=== PATIENT | male | born 1950 | race Caucasian/White ===

== ENCOUNTER → 2017-02-07 | Outpatient (REF) | payer OTHER ==
[~2017-02-07] MED LIST: AMLO5CAP2 PO; ASPI81TA85 PO; ATOR1TAB19 PO; COUM2.5T11 PO; FOLI1TAB2 PO; MULT1TAB8 PO; OXYC-299 PO; PERC5TAB6 PO; THIA100TA PO; TUMS500C PO; TYLE325T5 PO; TYLETAB14 PO; VITMTA PO
== END ==
LOC: M LAB REF 16:31
PROVIDERS: ATTEND Urology
DX: Z85.46 Personal history of malignant neoplasm of prostate (principal)

== ENCOUNTER → 2017-08-27 | Outpatient (CLI) | payer OTHER ==
[~2017-08-27] MED LIST changes: -COUM2.5T11 PO; +COUM2.5T17 PO; -FOLI1TAB2 PO; +FOLI1TAB4 PO; +OXYC-141 PO; -OXYC-299 PO; +PERC5TAB12 PO; -PERC5TAB6 PO
--- NOTE | 2017-08-27 09:37 | REP ---
Maxillofacial CT study without contrast. History: Atypical facial pain. No comparison imaging. Maxillofacial CT findings: There is a fairly prominent torus mandibulare noted projecting medially from the anterior portions of the mandibular rami on both sides. No bony destructive or erosive changes seen. There are uninterrupted wisdom teeth in each side of the mandible. No maxillary lesion is seen. Hard palette is unremarkable. There is minimal mucosal thickening affecting the right maxillary sinus inferiorly. Otherwise, the maxillary sinuses are clear. Ostiomeatal complexes are patent. Ethmoid and sphenoid aeration is clear. Frontal sinuses are clear. The bony nasal septum is in the midline. Nasal turbinates are symmetric. No nasal polyp is appreciated. Mastoid aeration is normal and symmetric. No abnormality is seen in the petrous bone on either side. No bony destructive skull base lesion is seen. No intraorbital mass is seen. The deep facial soft tissues are symmetric. Impression: Fairly prominent torus mandibulare bilaterally. Minimal mucosal thickening right maxillary sinus. Otherwise unremarkable. Signed by Maurisio Curran MD 08/27/2017 02:22 P
== END ==
LOC: M RAD 08:14
PROVIDERS: ATTEND Otolaryngology
DX: G50.1 Atypical facial pain (principal)

== ENCOUNTER → 2017-08-27 | Outpatient (CLI) | payer OTHER ==
[2017-08-27 08:50] LABS: ALBUMIN/GLOBULIN RATIO 1.21 (1.00-1.93); ALKALINE PHOSPHATASE 75 U/L (45-117); ALT/SGPT 24 U/L (12-78); ANION GAP 8 MEQ/L (8-16); AST/SGOT 22 U/L (7-37); BILIRUBIN,TOTAL 0.9 MG/DL (0.2-1.0); BLOOD UREA NITROGEN 11 MG/DL (7-18); CALCIUM LEVEL 9.3 MG/DL (8.8-10.2); CARBON DIOXIDE LEVEL 28 MEQ/L (21-32); CHLORIDE LEVEL 106 MEQ/L (98-107); CHOLESTEROL LEVEL 185 MG/DL (<200); GLOMERULAR FILTRATION RATE > 60.0 (>49); GLUCOSE, FASTING 103 MG/DL (80-110); POTASSIUM SERUM 4.6 MEQ/L (3.5-5.1); SODIUM LEVEL 142 MEQ/L (136-145); TOTAL PROTEIN 7.3 GM/DL (6.4-8.2); TRIGLYCERIDES LEVEL 74 MG/DL (<150)
== END ==
LOC: M LAB 07:55
PROVIDERS: ATTEND Internal Medicine
DX: E78.5 Hyperlipidemia, unspecified (principal)

== ENCOUNTER → 2018-03-21 | Outpatient (CLI) | payer OTHER ==
[2018-03-21 14:15] LABS: PROSTATIC SPECIFIC AG MONITOR < 0.01 NG/ML (< 4.0)
== END ==
LOC: M WUC 09:54
DX: N52.31 Erectile dysfunction following radical prostatectomy (principal)
CPT/HCPCS: 84153

== ENCOUNTER → 2018-08-11 | Outpatient (CLI) | payer MEDICARE, OTHER ==
[2018-08-11 13:00] LABS: ALBUMIN 3.6 GM/DL (3.2-5.2); ALBUMIN/GLOBULIN RATIO 1.24 (1.00-1.93); ALKALINE PHOSPHATASE 68 U/L (45-117); ALT/SGPT 28 U/L (12-78); ANION GAP 6 MEQ/L (8-16); AST/SGOT 21 U/L (7-37); BILIRUBIN,TOTAL 0.7 MG/DL (0.2-1.0); BLOOD UREA NITROGEN 14 MG/DL (7-18); CALCIUM LEVEL 8.8 MG/DL (8.8-10.2); CARBON DIOXIDE LEVEL 30 MEQ/L (21-32); CHLORIDE LEVEL 105 MEQ/L (98-107); CHOLESTEROL LEVEL 168 MG/DL (<200); CHOLESTEROL RISK RATIO 1.887 (<5); CREATININE FOR GFR 0.86 MG/DL (0.70-1.30); GLOMERULAR FILTRATION RATE > 60.0 (>49); GLUCOSE, FASTING 95 MG/DL (70-100); HDL CHOLESTEROL 89 MG/DL (>40); LDL CHOLESTEROL 65 MG/DL (<100); NON-HDL-C 79 MG/DL; POTASSIUM SERUM 4.4 MEQ/L (3.5-5.1); SODIUM LEVEL 141 MEQ/L (136-145); TOTAL PROTEIN 6.5 GM/DL (6.4-8.2); TRIGLYCERIDES LEVEL 71 MG/DL (<150)
== END ==
LOC: M WUC 09:24
DX: E78.5 Hyperlipidemia, unspecified (principal)
CPT/HCPCS: 80053

== ENCOUNTER → 2019-03-24 | Outpatient (CLI) | payer MEDICARE, OTHER ==
[~2019-03-24] MED LIST changes: -AMLO5CAP2 PO; +AMLO5CAP44 PO; +FOLI1TAB11 PO; -FOLI1TAB4 PO
== END ==
LOC: M WUC 11:24
PROVIDERS: ATTEND Physician Assistant
DX: Z85.46 Personal history of malignant neoplasm of prostate (principal)

== ENCOUNTER 2019-04-23 06:52 | Day surgery (SDC) | payer MEDICARE, OTHER ==
[~2019-04-23] VITALS: Ht 180.3 cm; Wt 79.4 kg
[~2019-04-23 06:52] MED LIST changes: +EFFE150C2 PO; +NS 1,000 ML IV ONE
[2019-04-23] MEDS ORDERED: LIDOCAINE 2% INJ 100 MG/5 ML SDV (FOR ANES.) As Ordered ONE (08:03)
[2019-04-23] MEDS ORDERED: PROPOFOL 200 MG/20 ML VIAL As Ordered ONE ×2 (08:03→08:40)
--- NOTE | 2019-04-23 08:27 | ROOR ---
Patient Name: Irineo Rosales Procedure Date: 04/23/2019 8:04 AM Date of : 1950 Age: 68 Room: [facility] Gender: Male Note Status: Finalized Procedure: Colonoscopy Indications: High risk colon cancer surveillance: Personal history of colonic polyps Providers: Elmer Moreno Jr, MD Referring MD: GIN COLE MD Requesting Provider: Medicines: Propofol per Anesthesia Complications: No immediate complications. Procedure: Pre-Anesthesia Assessment: - Prior to the procedure, a History and Physical was performed, and patient medications and allergies were reviewed. The patient is competent. The risks and benefits of the procedure and the sedation options and risks were discussed with the patient. All questions were answered and informed consent was obtained. Patient identification and proposed procedure were verified by the physician and the nurse in the pre-procedure area and in the procedure room. Mental Status Examination: alert and oriented. Airway Examination: normal oropharyngeal airway and neck mobility. Respiratory Examination: clear to auscultation. CV Examination: normal. ASA Grade Assessment: II - A patient with mild systemic disease. After reviewing the risks and benefits, the patient was deemed in satisfactory condition to undergo the procedure. The anesthesia plan was to use moderate sedation / analgesia (conscious sedation). Immediately prior to administration of medications, the patient was re-assessed for adequacy to receive sedatives. The heart rate, respiratory rate, oxygen saturations, blood pressure, adequacy of pulmonary ventilation, and response to care were monitored throughout the procedure. The physical status of the patient was re-assessed after the procedure. The Colonoscope was introduced through the anus and advanced to the cecum, identified by appendiceal orifice and ileocecal valve. The colonoscopy was performed without difficulty. The patient tolerated the procedure well. The quality of the bowel preparation was adequate. Findings: The rectum, recto-sigmoid colon, cecum, appendiceal orifice and ileocecal valve appeared normal. Multiple small and large-mouthed diverticula were found in the sigmoid colon. A few small and large-mouthed diverticula were found in the descending colon, transverse colon and ascending colon. Impression: - The rectum, recto-sigmoid colon, cecum, appendiceal orifice and ileocecal valve are normal. - Diverticulosis in the sigmoid colon. - Diverticulosis in the descending colon, in the transverse colon and in the ascending colon. - No specimens collected. Recommendation: - Discharge patient to home (ambulatory). - Repeat colonoscopy in 5 years for surveillance. Elmer Moreno MD Elmer Moreno Jr, MD 04/23/2019 8:27:26 AM Electronically signed by Elmer Moreno Jr, MD Number of Addenda: 0 Note Initiated On: 04/23/2019 8:04 AM Estimated Blood Loss: Estimated blood loss: none.
[2019-04-23 08:45] VITALS: BP 163/77
== END 2019-04-23 09:30 | disposition home or self-care (01) ==
LOC: M OPP 06:52
PROVIDERS: ATTEND Surgery
DX: Z12.11 Encounter for screening for malignant neoplasm of colon (principal); Z86.010 Personal history of colon polyps; K57.30 Diverticulosis of large intestine without perforation or abscess without bleeding; I10 Essential (primary) hypertension; Z79.82 Long term (current) use of aspirin; Z79.899 Other long term (current) drug therapy; F17.210 Nicotine dependence, cigarettes, uncomplicated

== ENCOUNTER → 2019-07-14 | Outpatient (CLI) | payer MEDICARE, OTHER ==
[~2019-07-14] MED LIST changes: -NS 1,000 ML IV ONE
[2019-07-14 17:07] LABS: BASO % 0.3 % (0.0-1.0); EOS # 0.1 10^3/uL (0.0-0.5); EOS % 0.8 % (0.0-3.0); HEMATOCRIT 44.5 % (42.0-52.0); HEMOGLOBIN 14.8 g/dl (13.5-17.5); LYMPH # 1.6 10^3/uL (1.5-5.0); LYMPH % 24.9 % (24.0-44.0); MEAN CORPUSCULAR HEMOGLOBIN 33.3 pg (27.0-33.0); MEAN CORPUSCULAR HGB CONC 33.3 g/dl (32.0-36.5); MEAN CORPUSCULAR VOLUME 100.2 fl (80.0-96.0); MONO # 0.7 10^3/uL (0.0-0.8); MONO % 11.4 % (0.0-5.0); NEUTROPHILS # 3.9 10^3/uL (1.5-8.5); NEUTROPHILS % 62.1 % (36.0-66.0); PLATELET COUNT, AUTOMATED 193 10^3/uL (150-450); RED BLOOD COUNT 4.44 10^6/uL (4.30-6.10); WHITE BLOOD COUNT 6.3 10^3/uL (4.0-10.0)
[2019-07-14 17:33] LABS: ALBUMIN 3.9 GM/DL (3.2-5.2); ALT/SGPT 25 U/L (12-78); BILIRUBIN,TOTAL 0.5 MG/DL (0.2-1.0); BLOOD UREA NITROGEN 14 MG/DL (7-18); CALCIUM LEVEL 9.8 MG/DL (8.8-10.2); CARBON DIOXIDE LEVEL 28 MEQ/L (21-32); CHLORIDE LEVEL 103 MEQ/L (98-107); CREATININE FOR GFR 0.85 MG/DL (0.70-1.30); GLOMERULAR FILTRATION RATE > 60.0 (>49); GLUCOSE, FASTING 84 MG/DL (70-100); POTASSIUM SERUM 4.6 MEQ/L (3.5-5.1); SODIUM LEVEL 137 MEQ/L (136-145); TOTAL PROTEIN 7.2 GM/DL (6.4-8.2); TROPONIN I < 0.02 NG/ML (< 0.10)
== END ==
LOC: M WUC 12:31
PROVIDERS: ATTEND Nurse Practitioner Family
DX: R42 Dizziness and giddiness (principal); E07.9 Disorder of thyroid, unspecified

== ENCOUNTER 2019-07-16 19:26 | Inpatient (IN) | payer MEDICARE, OTHER ==
[~2019-07-16] VITALS: Ht 180.3 cm; Wt 75.0 kg
[2019-07-16 19:52] LABS: BASO % 0.4 % (0.0-1.0); EOS # 0.2 10^3/uL (0.0-0.5); EOS % 2.7 % (0.0-3.0); HEMATOCRIT 42.9 % (42.0-52.0); HEMOGLOBIN 14.4 g/dl (13.5-17.5); LYMPH # 2.8 10^3/uL (1.5-5.0); LYMPH % 38.7 % (24.0-44.0); MEAN CORPUSCULAR HEMOGLOBIN 33.6 pg (27.0-33.0); MEAN CORPUSCULAR HGB CONC 33.6 g/dl (32.0-36.5); MONO # 0.7 10^3/uL (0.0-0.8); MONO % 9.8 % (0.0-5.0); NEUTROPHILS # 3.5 10^3/uL (1.5-8.5); NEUTROPHILS % 48.1 % (36.0-66.0); PLATELET COUNT, AUTOMATED 249 10^3/uL (150-450); RED BLOOD COUNT 4.29 10^6/uL (4.30-6.10); WHITE BLOOD COUNT 7.3 10^3/uL (4.0-10.0)
[2019-07-16 20:13] LABS: INR 1.01
[2019-07-16 20:23] LABS: ALBUMIN 3.9 GM/DL (3.2-5.2); ALT/SGPT 29 U/L (12-78); BILIRUBIN,DIRECT 0.1 MG/DL (0.0-0.2); BILIRUBIN,TOTAL 0.5 MG/DL (0.2-1.0); BLOOD UREA NITROGEN 13 MG/DL (7-18); CALCIUM LEVEL 9.1 MG/DL (8.8-10.2); CARBON DIOXIDE LEVEL 27 MEQ/L (21-32); CHLORIDE LEVEL 104 MEQ/L (98-107); CK-MB VALUE MASS 2.3 NG/ML (<3.6); CPK CREATINE PHOSPHOKINASE 158 U/L (39-308); CREATININE FOR GFR 0.91 MG/DL (0.70-1.30); GLOMERULAR FILTRATION RATE > 60.0 (>49); GLUCOSE, FASTING 95 MG/DL (70-100); MB/CK RELATIVE INDEX 1.46 (< OR =4); POTASSIUM SERUM 4.4 MEQ/L (3.5-5.1); SODIUM LEVEL 138 MEQ/L (136-145); TOTAL PROTEIN 7.3 GM/DL (6.4-8.2); TROPONIN I < 0.02 NG/ML (< 0.10)
[2019-07-16 21:51] LABS: ETHYL ALCOHOL (ETHANOL) < 0.003 % (0.000-0.010)
--- NOTE | 2019-07-16 22:05 | REPVR ---
PROCEDURE INFORMATION: Exam: MR Head Without Contrast Exam date and time: 07/16/2019 9:49 PM Clinical history: 68 years old, male; Weakness, extremity; Patient HX: Severe bilateral le weakness for several days; Additional info: Neuro deficits TECHNIQUE: Imaging protocol: MR of the head without contrast. COMPARISON: No relevant prior studies available. FINDINGS: Brain: No acute infarct. Mild chronic microvascular ischemic changes. Ventricles: Normal. No ventriculomegaly. Bones/joints: Unremarkable. Soft tissues: Unremarkable. Sinuses: Normal as visualized. No acute sinusitis. Mastoid air cells: Normal as visualized. No mastoid effusion. Orbits: Unremarkable. Other findings: No hemorrhage. IMPRESSION: No acute intracranial abnormality. Electronically signed by: Lm Constantino On 07/16/2019 22:05:29 PM
--- NOTE | 2019-07-16 22:11 | REPVR ---
PROCEDURE INFORMATION: Exam: MR Angiogram Head Without Contrast, Arteries Exam date and time: 07/16/2019 9:49 PM Clinical history: 68 years old, male; Patient HX: Severe bilateral le weakness for several days; Additional info: Neuro deficits TECHNIQUE: Imaging protocol: MR angiogram head without contrast. Exam focused on the arteries. 3D rendering: MIP reconstructed images were created and reviewed. COMPARISON: No relevant prior studies available. FINDINGS: Right internal carotid artery: Unremarkable. Intracranial segment is patent with no significant stenosis. No aneurysm. Right anterior cerebral artery: Unremarkable. No occlusion or significant stenosis. No aneurysm. Right middle cerebral artery: Unremarkable. No occlusion or significant stenosis. No aneurysm. Right posterior cerebral artery: Unremarkable. No occlusion or significant stenosis. No aneurysm. Right vertebral artery: Unremarkable. No occlusion or significant stenosis. No aneurysm. Left internal carotid artery: Unremarkable. Intracranial segment is patent with no significant stenosis. No aneurysm. Left anterior cerebral artery: Unremarkable. No occlusion or significant stenosis. No aneurysm. Left middle cerebral artery: Unremarkable. No occlusion or significant stenosis. No aneurysm. Left posterior cerebral artery: Unremarkable. No occlusion or significant stenosis. No aneurysm. Left vertebral artery: Left vertebral artery ends in PICA. The left vertebral artery continues as the basilar artery. Basilar artery: Unremarkable. No occlusion or significant stenosis. No aneurysm. IMPRESSION: No acute intracranial abnormality. Electronically signed by: Lm Constantino On 07/16/2019 22:11:12 PM
[2019-07-16] MEDS ORDERED: ACETAMINOPHEN TAB 650MG DOSE (2X325MG) PO PRN (22:15)
[2019-07-16 23:25] LABS: APPEARANCE, CSF CLEAR (CLEAR); COLOR, CSF COLORLESS (COLORLESS); CSF TUBE# CELL CNT TUBE 4
[2019-07-16 23:25] LABS: APPEARANCE, CSF CLEAR (CLEAR); COLOR, CSF COLORLESS (COLORLESS); CSF TUBE# CELL CNT TUBE 1
[2019-07-16] MEDS ORDERED: 12 H0.05 (23:30)
[2019-07-16] MEDS ORDERED: ASPI-161 PO (23:30)
[2019-07-16] MEDS ORDERED: LORA-622 PO (23:30)
[2019-07-16] MEDS ORDERED: LOTR52CA PO (23:30)
[2019-07-16] MEDS ORDERED: MUCINEX SINUS MAX (23:30)
[2019-07-16 23:31] LABS: CSF TUBE# GLU TUBE 3; CSF TUBE# TP TUBE 4; GLUCOSE CSF 60 MG/DL (40-75); TOTAL PROTEIN,CSF 73 MG/DL (15-45)
--- NOTE | 2019-07-16 23:38 | HPEPDOC ---
[facility] Medical History & Physical Date of Admission Jul 16, 2019 Date of Service: Jul 16, 2019 Primary Care Physician: A Other Provider Jamal Love MD Attending Physician: DANIEL VAZQUEZ MD History and Physical TIME OF SERVICE: 11:15 PM CHIEF COMPLAINT: Weakness HISTORY OF PRESENT ILLNESS: This is a 68 year old male who presents with complaints of gradually worsening lower extremity weakness. Last Saturday in the morning he felt like he "pulled"something in his left calf; as the day went on he had an abnormal sensation moving up and down his leg. On Saturday, the same thing occurred to his right leg. Over the next few days both legs gradually became weaker; yesterday he was able to walk with a cane but today he was unable to hold himself up, or get up or to walk, and had a fall this afternoon which prompted him to come to the hospital. He denies hitting his head as a result of the fall. Other symptoms include "double vision" and lower back pain. He denies having fevers, denies having difficulty swallowing, denies having difficulty breathing, denies having trauma to his back prior to developing the symptoms, denies having cough, denies having a runny nose, denies having congestion, denies having nausea, and denies having vomiting. REVIEW OF SYSTEMS: 12 point review of systems negative except as listed in HPI PAST MEDICAL/ SURGICAL HISTORY: Chronic hypertension. Dyslipidemia. History of prostate cancer status post prostatectomy in 2006 Left knee total replacement SOCIAL HISTORY: Smokes Drink 6 beers daily FAMILY HISTORY: Father had brain aneurysm ALLERGIES: Please see below. HOME MEDICATIONS: Please see below. PHYSICAL EXAMINATION: VITAL SIGNS: Please see below. GENERAL APPEARANCE: Well-nourished, well-developed, not in apparent distress HEENT: Normocephalic, atraumatic, mucous membranes moist and pink, left pupil does not appear to react to light. CARDIOVASCULAR: Regular rate and rhythm. No murmurs, rubs or gallops LUNGS: Clear to auscultation bilaterally on room air ABDOMEN: Abdomen is soft and nontender on palpation MUSCULOSKELETAL: strength is 5 /5 in both upper extremities, 3/5 at the left hip and knee and +3/5 at the right knee and hip/ negative straight leg test bilaterally INTEGUMENT: He does not have generalized pallor and is not flushed NEUROLOGICAL:Cranial nerves II-12 except for pupillary reflex at the left are intact / sensation is intact both lower extremities / there is no clonus / DTR 0 at left knee, 1 at right knee, 2 at both biceps PSYCHIATRIC: Allergic oriented to person, place and time, able to understand and follow commands LABORATORY DATA: See below. IMAGING: MRI brain " IMPRESSION: No acute intracranial abnormality." MICROBIOLOGY: Please see below. ASSESSMENT: Mr. Rosales 68-year-old male with a past medical history of hypertension, dyslipidemia, and prostate cancer in remission, who will be admitted for evaluation of bilateral lower extremity weakness who's cause is TBD. PLAN: 1. Bilateral lower extremity weakness Cause TBD Differential includes GB vs spinal cord impingement. LP results were reviewed. Plan: admit to [facility] / aspiration precautions / fall precautions / per d/w (Neuro) will order MRI of thoracic and lumbar spine tonight / elevate head of bed /f/u B12 and B1 levels / PT eval to determine if he will need walking aides and or rehab 2. Back pain Cause TBD Patient denies trauma to the back. Plan: f/u MRI of spine / lidocaine patch, ibuprofen and tramadol for pain 3. Chronic HTN Acute elevation 2/2 back pain and or alcohol w/d Plan: c/w home meds / control pain 4. Alcohol Dependence He is unsure if he will develop seizures if he doesn't drink bc he drinks daily. The Macrocytosis is likely due to alcoholism Plan: fall & seizure precautions / ativan per CIWA protocol / thiamine, folic acid and MVI 5. Tobacco Abuse Plan: nicotine patch / smoking cessation education DVT prophylaxis with Lovenox Disposition pending clinical course Vital Signs Vital Signs Date Time Temp Pulse Resp B/P (MAP) Pulse Ox O2 Delivery O2 Flow Rate FiO2 07/16/19 23:19 72 16 95 Room Air 07/16/19 22:49 135/66 (89) 07/16/19 19:37 99.0 Laboratory Data Labs 24H Laboratory Tests 2 07/16/19 19:38: Immature Granulocyte % (Auto) 0.3, Neutrophils (%) (Auto) 48.1, Lymphocytes (%) (Auto) 38.7, Monocytes (%) (Auto) 9.8H, Eosinophils (%) (Auto) 2.7, Basophils (%) (Auto) 0.4, Neutrophils # (Auto) 3.5, Lymphocytes # (Auto) 2.8, Monocytes # (Auto) 0.7, Eosinophils # (Auto) 0.2, Basophils # (Auto) 0.0, Nucleated Red Blood Cells % (auto) 0.0, Prothrombin Time 13.0, Prothromb Time International Ratio 1.01, Anion Gap 7L, Glomerular Filtration Rate > 60.0, Calcium Level 9.1, Magnesium Level 2.0, Total Bilirubin 0.5, Direct Bilirubin 0.1, Aspartate Amino Transf (AST/SGOT) 25, Alanine Aminotransferase (ALT/SGPT) 29, Alkaline Phos phatase 88, Total Creatine Kinase 158, Creatine Kinase MB 2.3, Creatine Kinase MB Relative Index 1.46, Troponin I < 0.02, Total Protein 7.3, Albumin 3.9, Albumin/Globulin Ratio 1.15, Thyroid Stimulating Hormone (TSH) 4.010H, Ethyl Alcohol Level < 0.003 07/16/19 22:56: CSF Appearance CLEAR, CSF Color COLORLESS, CSF WBC (Auto) 3, CSF RBC (Auto) < 2, CSF Glucose (Tube 1) TUBE 3, CSF Total Protein (Tube 1) TUBE 4, CSF Cell Count Tube # TUBE 1, CSF Polynuclear WBCs (%) , CSF Glucose 60, CSF Total Protein 73H 07/16/19 23:00: CSF Appearance CLEAR, CSF Color COLORLESS, CSF WBC (Auto) 1, CSF RBC (Auto) < 2, CSF Cell Count Tube # TUBE 4, CSF Polynuclear WBCs (%) CBC/BMP Laboratory Tests 07/16/19 19:38 Microbiology Microbiology 07/16/19 Gram Stain, Received Pending 07/16/19 CSF Culture, Received Pending Home Medications Scheduled Amlodipine/Benazepril (Lotrel 5-20 mg Capsule) 1 Each Capsule, 1 CAP PO QHS Aspirin (Aspirin EC) 81 Mg Tablet.dr, 81 MG PO DAILY Atorvastatin Calcium (Atorvastatin Calcium) 10 Mg Tab, 10 MG PO QHS Venlafaxine HCl (Effexor Xr) 150 Mg Cap.er.24h, 150 MG PO DAILY Scheduled PRN Calcium Carbonate (Tums) 500 Mg Chw, 1,000 MG PO Q4H PRN for HEARTBURN/INDIGESTION Loratadine (Loratadine) 10 Mg Tablet, 10 MG PO DAILY PRN for ALLERGY SYMPTOMS Oxymetazoline HCl (No Drip) 0.05% [place], 2 SPRAYS NA QHS PRN for NASAL CONGESTION Allergies Coded Allergies: No Known Allergies (Unverified , 07/16/19) A-FIB/CHADSVASC A-FIB History Current/History of A-Fib/PAF?: No Current PO Anticoag Therapy: No DANIEL VAZQUEZ MD Jul 16, 2019 23:38
[2019-07-16 23:40] VITALS: BP 162/90
[2019-07-17] VITALS: BP 162/90
[2019-07-17] MEDS ORDERED: IBUPROFEN 600 MG TAB PO ONE
[2019-07-17] MEDS ORDERED: LORazepam 2 MG/ML VIAL (J2060) IM PRN
[2019-07-17] MEDS ORDERED: OXYMETAZOLINE NASAL SPRAY (AFRIN) PRN (00:15)
[2019-07-17] MEDS ORDERED: CALCIUM CARBONATE 500 MG CHEW U/D PO PRN (00:15)
[2019-07-17] MEDS ORDERED: LORATADINE 10 MG TAB PO PRN (00:15)
[2019-07-17] MEDS: THIAMINE 100 MG TAB PO SCH ×3 (00:25→20:19)
[2019-07-17] MEDS: LIDOCAINE 5% (LIDODERM) PATCH TD SCH ×2 (00:26→20:33)
[2019-07-17] MEDS: amLODIPine 5 MG TAB PO SCH ×2 (00:26→20:19)
[2019-07-17] MEDS ORDERED: diphenhydrAMINE INJ 50MG/ML VIAL (J1200) IM ONE (00:45)
[2019-07-17] MEDS ORDERED: diphenhydrAMINE 25 MG CAP PO ONE (00:45)
[2019-07-17] MEDS: BENAZEPRIL 20 MG TAB PO SCH ×2 (00:50→20:19)
[2019-07-17] MEDS ORDERED: traMADol ER 100MG TABLET (ULTRAM ER) PO ONE (01:00)
[2019-07-17] MEDS ORDERED: LORazepam 2 MG/ML VIAL (J2060) IV STA (01:58)
[2019-07-17] MEDS ORDERED: MORPHINE 2 MG/ML 1ML VIAL (J2270) IV PRN (02:00)
[2019-07-17] MEDS: **NOTE PATIENT COMMENT** MISC XX SCH (02:26)
--- NOTE | 2019-07-17 04:23 | REPVR ---
PROCEDURE INFORMATION: Exam: MR Thoracic Spine Without Contrast Exam date and time: 07/17/2019 3:31 AM Clinical history: 68 years old, male; Patient HX: Le weakness, negative mri/a brain done <24 hours ago; Additional info: Weakness and back pain TECHNIQUE: Imaging protocol: Multiplanar magnetic resonance images of the thoracic spine without contrast. COMPARISON: No relevant prior studies available. FINDINGS: Vertebrae: There multiple osseous lesions suspicious for malignancy, which are low in signal on T1, predominantly low in signal on T2 and heterogeneously increased signal on STIR. The largest lesion involves the T7 vertebral body and posterior elements. There is no loss of height or significant expansion of the T7 vertebral body. There is mild expansion of the left T7 lamina. Additional, smaller lesions are seen within the T1 vertebral body and the T1 spinous process, the T2 vertebral body, the left T5 transverse process, the T6 vertebral body, the superior aspect of the T8 vertebral body and in the far right side of the T12 vertebral body. There is mild loss of height of the T12 vertebral body with slight depression of the superior endplate, but no associated abnormal signal within superior endplate. Spinal cord: The thoracic spinal cord is normal in signal and morphology. Discs/Spinal canal/Neural foramina: There is a small disc osteophyte complex at T11-T12, asymmetric to the left in the paracentral location, not resulting in significant stenosis of the spinal canal. No significant spinal canal stenosis is seen. Soft tissues: The paraspinous soft tissues appear unremarkable. Vasculature: The visualized aorta is normal in size. IMPRESSION: 1. Multiple osseous lesions, highly suspicious for metastases. The largest involves the T7 vertebral body and posterior elements with mild expansion of the left lamina. 2. No significant encroachment upon the spinal canal. Normal signal of the thoracic spinal cord. Electronically signed by: Maritza Hurley On 07/17/2019 04:22:37 AM
[2019-07-17] MEDS: MORPHINE 2 MG/ML 1ML VIAL (J2270) IV PRN ×5 (04:29→20:19)
[2019-07-17] MEDS: NICOTINE 14 MG/24 HR TRANSDERMAL TD SCH ×2 (04:29→09:18)
--- NOTE | 2019-07-17 04:40 | REPVR ---
PROCEDURE INFORMATION: Exam: MR Lumbar Spine Without Contrast. Exam date and time: 07/17/2019 3:31 AM Clinical history: 68 years old, male; Patient HX: Le weakness, negative mri/a brain done <24 hours ago; Additional info: Weakness and back pain TECHNIQUE: Imaging protocol: Multiplanar magnetic resonance images of the lumbar spine without intravenous contrast. COMPARISON: No relevant prior studies available. FINDINGS: Limitations: There is motion artifact. Vertebrae: There are several osseous lesions which are low in signal on T1, predominantly low in signal on T2, and heterogeneously increased signal on STIR which are suspicious for osseous metastases. The largest lesion in the lumbar spine involves the anterior aspect of the L1 vertebral body. There is no significant expansion. Additional lesions are seen in the T12 vertebral body, described on the MRI of the thoracic spine, as well as in the right side of the L5 vertebral body. There is normal alignment of the lumbar spine. Spinal cord: The conus medullaris terminates at the L1-L2 level. The distal cord appears unremarkable. T12-L1: Imaged on the sagittal images only. No posterior disc bulge or herniation. No central or foraminal stenosis. L1-L2: Anterior endplate spurs. No posterior disc bulge or herniation. No central or foraminal stenosis. L2-L3: Anterior endplate spurs. Minimal posterior disc bulge. No central or foraminal stenosis. L3-L4: Anterior endplate spurs. Small disc bulge. Mild facet joint hypertrophy. No significant central or foraminal stenosis. L4-L5: Anterior endplate spurs. Diffuse disc bulge with more prominent extension into the bilateral neural foramen than centrally. Hypertrophic facet arthropathy with fluid in the left facet joint. 9 mm ganglion extending posteriorly from the left facet joint. Mild central canal stenosis and mild bilateral neural foraminal narrowing. L5-S1: Anterior endplate spurs and moderate disc narrowing. Disc bulge more prominent into the bilateral neural foramen than centrally. Hypertrophic facet arthropathy. No significant central stenosis. Moderate left and mild right neural foraminal narrowing. Soft tissues: See L4-L5 findings. The paraspinous soft tissues appear otherwise unremarkable. Other findings: The visualized aorta is normal in size. IMPRESSION: 1. Several osseous lesions, suspicious for osseous metastases. See the separate report for MRI of the thoracic spine. 2. Degenerative disc disease and facet arthropathy most prominent at L4-L5 and L5-S1. Mild central canal stenosis at L4-L5. Bilateral neural foraminal narrowing at L4-L5 and L5-S1. Findings were discussed with DANIEL VAZQUEZ at 07/17/2019 4:25 AM EST. Electronically signed by: Maritza Hurley On 07/17/2019 04:40:04 AM
[2019-07-17] MEDS: ACETAMINOPHEN 650MG ER TAB (TYLENOL ARTHRITIS) PO SCH ×2 (05:43→17:05)
[2019-07-17 06:00] VITALS: BP 138/81
[2019-07-17] MEDS ORDERED: IBUPROFEN 200 MG TAB PO PRN (06:00)
[2019-07-17 07:00] VITALS: BP 138/81
[2019-07-17 08:05] LABS: HEMOGLOBIN 13.3 g/dl (13.5-17.5); MEAN CORPUSCULAR HEMOGLOBIN 33.3 pg (27.0-33.0); MEAN CORPUSCULAR HGB CONC 33.3 g/dl (32.0-36.5); MEAN CORPUSCULAR VOLUME 100.3 fl (80.0-96.0); PLATELET COUNT, AUTOMATED 244 10^3/uL (150-450); RED BLOOD COUNT 3.99 10^6/uL (4.30-6.10); WHITE BLOOD COUNT 6.6 10^3/uL (4.0-10.0)
[2019-07-17 08:20] LABS: BLOOD UREA NITROGEN 14 MG/DL (7-18); CALCIUM LEVEL 8.9 MG/DL (8.8-10.2); CARBON DIOXIDE LEVEL 29 MEQ/L (21-32); CHLORIDE LEVEL 104 MEQ/L (98-107); GLOMERULAR FILTRATION RATE > 60.0 (>49); GLUCOSE, FASTING 100 MG/DL (70-100); POTASSIUM SERUM 3.9 MEQ/L (3.5-5.1); SODIUM LEVEL 138 MEQ/L (136-145)
[2019-07-17 09:08] LABS: CPK CREATINE PHOSPHOKINASE 190 U/L (39-308)
[2019-07-17] MEDS: VENLAFAXINE **XR** 75MG CAPSULE PO SCH (09:15)
[2019-07-17] MEDS: ASPIRIN 81 MG ENTERIC TAB PO SCH (09:15)
[2019-07-17] MEDS: MULTIVITAMINS/MINERALS THERAP 1 TAB PO SCH (09:16)
[2019-07-17] MEDS: FOLIC ACID 1 MG TAB PO SCH (09:16)
[2019-07-17] MEDS: ENOXAPARIN 40 MG/0.4 ML SYRINGE (J1650) SC SCH (09:16)
[2019-07-17 09:32] LABS: ERYTHROCYTE SEDIMENTATION RATE 6 mm/hr (0-20)
[2019-07-17 09:38] LABS: VITAMIN B12 LEVEL 265 PG/ML (247-911)
[2019-07-17] MEDS: GASTROGRAFIN SOLUTION 30ML PO SCH ×2 (09:53→10:27)
[2019-07-17] MEDS ORDERED: ISOVUE-370 76% 100ML VIAL (Q9967) As Ordered ONE (11:59)
[2019-07-17] MEDS: CYANOCOBALAMIN 500 MCG TAB PO SCH (13:02)
--- NOTE | 2019-07-17 13:35 | ECGEPIP ---
[facility] - ED Test Date: 2019-07-16 Pat Name: TRISTAN BRIZUELA Department: Room: [place] [address] Gender: Male Healthcare Customer Service: JULISA : 1950 Requested By: JOSE Ochoa Order Number: [id number] Reading MD: Sayra Gomez Measurements Intervals [place] Rate: 73 P: 77 OK: 188 QRS: 40 QRSD: 78 T: 70 QT: 368 QTc: 406 Interpretive Statements SINUS RHYTHM baseline artifact may affect interpretation INCREASED RATE 05/18/16 Electronically Signed on 07-17-2019 13:34:36 EST by Sayra Gomez
[2019-07-17 13:54] VITALS: BP 160/99
--- NOTE | 2019-07-17 14:25 | REP ---
CT of the chest with IV contrast: There are no comparisons. The patient reportedly has history of prostate carcinoma and prostatectomy. There are multiple right lung nodules as follows: Right upper lobe anteriorly inferiorly adjacent to the minor fissure, there are three nodules: 12 mm near the hilus image 51. 16 mm, slightly more inferolaterally, image 50. 23 mm slightly more inferiorly , image 50. Right middle lobe: 11 mm anteriorly. Image 57. 23 mm more inferiorly, image 71. There are no pleural effusions. There is no mediastinal, hilar or axillary lymphadenopathy. The thoracic aorta is unremarkable. Cardiac size is normal. There is no pericardial effusion. There is a faintly visible blastic lesion and also a probable lytic lesion in the T8-2 vertebral body. There is grade 1 compression deformity of the L1 vertebral body. There is a fracture of the right seventh rib posterolaterally, likely subacute as there appears to be callus and healing. Impression: Multiple right lung nodules as described. 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 Fracture of the right seventh rib posterolaterally, healing Fracture of the left eighth rib posterolaterally. Possibly pathologic. No adenopathy. No pleural effusion. Electronically Signed by Alejandro Contreras MD 07/17/2019 02:17 P
--- NOTE | 2019-07-17 14:57 | REP ---
CT of the abdomen and pelvis with IV and oral contrast: The studies performed contiguously with the chest CT this same date. The patient reportedly has a history of prostate carcinoma and prostatectomy. Present for a to the chest CT for findings in the chest. The hepatic parenchyma. There is a faintly visible enhancing lesion in the right lobe of the liver on image 30 measuring 20 mm. Upon review this is unchanged from the prior abdomen/pelvis CT dated 05/18/2016 and is likely an hemangioma. The hepatic parenchyma is otherwise homogeneous. There are no other hepatic masses. The gallbladder, pancreas and spleen are normal size and unremarkable. The adrenals are unremarkable. There is a nonobstructive 3 mm calculus in the left renal lower pole. There is an exophytic Bosniak type 1 left renal cyst at the lower pole measuring 2.2 cm. The kidneys are otherwise unremarkable. The abdominal aorta is unremarkable. There is no periaortic adenopathy or mass. The bowel and mesentery are unremarkable. Pelvis: The appendix is unremarkable. There is no pelvic adenopathy or ascites. There is a penile implant. This is unchanged. There are no lytic, blastic or destructive skeletal changes. There is grade 1 compression deformity of the T12 vertebral body. There is degenerative disc disease at T11-12 and T12-L1 and L5-S1. No lytic, blastic or destructive skeletal changes are identified in the lumbar spine or pelvis. Impression: No evidence of metastatic disease. No skeletal metastases. Nonobstructive left renal calculus. Benign left renal cyst. No retroperitoneal or abdominal adenopathy or mass. Penile implant. Electronically Signed by Alejandro Contreras MD 07/17/2019 02:48 P
[2019-07-17] MEDS ORDERED: IMMUNE GLOBULIN IV SCH (15:45)
--- NOTE | 2019-07-17 16:49 | IPNPDOC ---
Text Note Date of Service The patient was seen on 07/17/19. NOTE Subjective: Continues to have profound weakness of his legs, he cannot elevate legs against gravity and he is unable to walk. Also patient complains of double vision. Had long discussion about MRI result and further management Objective:VITAL SIGNS: Please see below. GENERAL APPEARANCE: Well-nourished, well-developed, not in apparent distress HEENT: Normocephalic, atraumatic. Mucous members moist and pink CARDIOVASCULAR: Regular rate and rhythm. No murmurs, rubs or gallops. Radial pulses are intact. There is no lower extremity edema LUNGS: . Diminished lung sounds bilaterally ABDOMEN: Bowel sounds are hypoactive. Abdomen is soft and nontender. MUSCULOSKELETAL: Patient cannot elevate his legs against gravity, reflexes preserved NEUROLOGICAL: Patient has double vision on both eyes, no nystagmus, no peripheral vision limitations. Sensitivity of the legs preserved, no nuchal rigidity. Alert, oriented, awake. Speech is not dysarthric Assessment and plan: Patient is 68 years old male with past history of hypertension, prostate cancer treated with prostatectomy in 2006 presented hospital with bilateral leg weakness and double vision. Imaging study showed multiple spinal bone metastasis and right lung nodules. Bilateral leg weakness MRI of the spine did not show compression of the spinal cord Differential diagnosis includes paraneoplastic syndrome secondary to malignancy S Lamberta Eaton syndrome, myasthenia gravis. Also there is possibility for Gullian Peoples syndrome. I discussed findings with Dr. Ervin with neurologist, he recommended IVIG infusion I ordered ab to voltage gated calcium channel, acetylcholine receptor Ab Bone metastasis/Lung nodules MRI of the spine showed multiple metastasis on the thoracic and lumbar spine level Chest CAT scan showed right lung nodules Patient had a history of prostate cancer, his also active smoker. Unclear the primary source of cancer. We will proceed with biopsy. IR guided biopsy ordered Appreciate/agree with oncologist consult Chronic HTN Continue cardioprotective medication Tobacco Abuse Plan: nicotine patch / smoking cessation education VS,Amy, I+O VS, Amy, I+O Laboratory Tests 07/16/19 19:38 07/17/19 07:45 Vital Signs Date Time Temp Pulse Resp B/P (MAP) Pulse Ox O2 Delivery O2 Flow Rate FiO2 07/17/19 15:50 18 07/17/19 14:00 97.9 69 94 Room Air 07/17/19 13:54 160/99 (119) I&O- Last 24 Hours up to 6 AM 07/17/19 06:00 Intake Total 600 ml Output Total 0 ml Balance 600 ml BARBARA HARPER DO Jul 17, 2019 16:49
[2019-07-17 17:40] LABS: FOLATE 14.2 NG/ML (>5.4)
--- NOTE | 2019-07-17 17:43 | CR ---
DATE OF HEMATOLOGY/ONCOLOGY CONSULTATION: 07/17/2019 This is a very pleasant 68-year-old gentleman who had come into the hospital due to development of gradually worsening of lower leg weakness. The patient stated that he felt that he may have pulled something in his left thigh or calf and had found an almost odd electrical type sensation going up and down his leg. The patient then stated approximately 12 hours later the same thing had occurred to his right lower leg. His legs had become weaker and he started to use a cane. It was at this time that the patient had gone to the emergency room for evaluation. He had no signs of any trauma and he has not received any immunizations in the past few months. Concern was that he may have had some spinal cord impingement and an MRI of the thoracic and the lumbar spine were done on 07/17/2019. The patient was found to have multiple osseous lesions suspicious for malignancy, predominately on the largest lesion involving T7 vertebral body and its posterior elements. There was no significant loss of height or expansion or any extension into the spinal cord. Other areas of disease were found at the left T5 transverse process T6, T8, T12. The spinal cord however was normal in its signal and morphology. No encroachment on the spinal cord in the thoracic or in the lumbar region. The patient then had a CT scan of the chest which had shown multiple right lung nodules, probably blastic and lytic mets as noted, fracture of the right 7th rib and a fracture of the left 8th rib posteriorly most likely pathological. The patient had a 12 mm lesion near the hilus and a 16 mm lesion inferolaterally and a 23 mm slightly more inferiorly. There was no sign of any pleural effusion at that time. The patient is currently in the hospital bed, his was at the bedside for further discussions to give history as well. PAST MEDICAL HISTORY: Includes prostate carcinoma status post prostatectomy in 2006, left total knee replacement, dyslipidemia, chronic hypertension. He takes about six beers a day. He continues to smoke at least a pack a day and has about a 50-60 pack-year history. FAMILY HISTORY: His father had a brain aneurysm. ALLERGIES: NO KNOWN DRUG ALLERGIES. CURRENT MEDICATIONS: Include Effexor 150 mg daily, loratadine 10 mg p.o. daily, atorvastatin 10 mg q.h.s., aspirin 81 mg p.o. daily and amlodipine Lotrel 5/20 mg one p.o. q.h.s. REVIEW OF SYSTEMS: He has had no headache, visual disturbances. No numbness or tingling in his upper extremities. No shortness of breath. No hemoptysis. No nausea or vomiting. No current problems with controlling his bowel or his bladder and he does relate having numbness and tingling and inability to lift both of his legs and does need assistance getting in and out of bed. He states that he is able to stand but moving his legs are a whole other story. LABORATORY: The patient had a WBC count of 6.6, hemoglobin of 13 over 40, RDW is 12.5, platelets are 244, serum chemistries, PSA is currently pending. His TSH is 4.10. Sodium is 138, potassium 3.9, chloride 104, CO2 29, BUN 14, creatinine 0.8, fasting glucose of 100 and creatinine kinase of 190. Coagulation studies show a PT of 13, INR of 1.10. The patient had a spinal tap lumbar puncture on 07/16/2019 showing clear color, WBCs with 3, RBCs were less than 2, his glucose was 60, total protein was 73. Cytology was not requested. However was added today. Specimen is available in the cytology lab and will be run on Saturday which will be July 27. Imaging studies are above noted. 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 PLAN: Followup on the cytology, have neurology evaluate the patient as well, get vitamin B12 and folate levels due to history of EtOH.
[2019-07-17] MEDS ORDERED: IMMUNE GLOBULIN 10% 10 GM in IV 1 EA IV ONE (18:00)
[2019-07-17] MEDS ORDERED: IMMUNE GLOBULIN 10% 20 GM in IV 1 EA IV ONE (18:00)
[2019-07-17 20:00] VITALS: BP 149/78
--- NOTE | 2019-07-17 21:38 | CR ---
DATE OF CONSULTATION: 07/17/2019 REFERRING PHYSICIAN: Percy Lei MD REASON FOR CONSULTATION: Weakness. HISTORY OF PRESENT ILLNESS Irineo Rosales is a 68-year-old man who was admitted at [facility] due to progressive weakness. The patient states that his symptoms started this past Saturday 6 days ago when he felt a pulled muscle in his left calf. He felt pulled muscle in his right calf on Saturday. He felt tightening of his muscles. On Saturday he started feeling weakness of his legs. He started using a cane. He went to Urgent Care and his blood tests were unremarkable. He saw his primary care physician on and by then he had more difficulty walking and he had double vision as well. He was using a walker day before he came to [facility] emergency department. He was scheduled to see us for consultation at our office today but he came to [facility] last night. His legs are getting weaker. He denies numbness, tingling or pain at his arms and legs. This morning he started feeling weakness of his arms as well. He denies any neck pain, back pain, headaches, dysphagia, dysarthria or urinary incontinence. He states that if he is looking on the clock in the room he sees two clocks. His double vision gets better if he tilts his head or closes one eye. DIAGNOSTIC STUDIES His MRI scan of brain showed minimal small vessel disease of brain. MRI lumbar and thoracic spine showed multiple vertebral metastasis without spinal cord impingement or signal changes in spinal cord. His ESR is 6, hemoglobin 13.3, vitamin B12 is 256 and TSH 4.01 with normal metabolic profile. PAST MEDICAL HISTORY Prostate cancer for which he had prostate resection in 2006, left knee replacement, dyslipidemia, hypertension. SOCIAL HISTORY He has been smoking one pack per day for 40 or more years. He has been drinking six beers a day for 40 or more years. He denies illicit drugs. FAMILY HISTORY Father had brain aneurysm. ALLERGIES None. HOME MEDICATIONS: Venlafaxine extended release 150 mg by mouth daily, Claritin 10 mg by mouth daily, Lipitor 10 mg by mouth daily, aspirin 81 mg by mouth daily, amlodipine/Lotrel 5/20 mg by mouth daily. REVIEW OF SYSTEMS All systems were reviewed and found to be noncontributory except as mentioned in history of present illness. PHYSICAL EXAMINATION Temperature 97.9, pulse 69, respiratory rate 19, blood pressure 160/99. Heart: Regular rate and rhythm. Lungs clear to auscultation. Abdomen: Soft, nontender, nondistended. No pedal edema. No musculoskeletal abnormalities. No rash. No signs of meningeal irritation. No musculoskeletal abnormalities. The patient is awake, alert, oriented to place, person and time. Normal speech, comprehension and repetition. Extraocular muscles are intact. No facial weakness and uvula are midline. Recent and distant memory is intact. There is no nystagmus. Strength in his right wrist extensor is 2/5 and left wrist extensor is 4-/5. Strength in his deltoids, triceps, biceps is 4+/5. Strength in his hip flexors and extensors is 3-/5. He has bilateral foot drop. Strength in his quadriceps is 5-/5. Gastrocnemius bilaterally is 5/5. Deep tendon reflexes are 1+ in knees and brachial radialis and absent elsewhere. Gait could not be tested. The patient is unable to stand up from his bed. Normal sensation to touch, cold vibration and pinprick. There is no dysmetria. There is no tremor. There is no improvement in his strength with repetitive activity and exercise. ASSESSMENT 1. Generalized weakness starting in legs and his arms are affected today. 2. 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 3. Myasthenia gravis and LEMS are in differential diagnosis, although there is no fatiguability or facilitation of muscle strength with repetitive exercise. 4. Multiple metastatic lesions to lumbar and thoracic spine without spinal cord involvement. PLAN 1. Intravenous immunoglobulin 40 grams daily intravenously for 4 days to make a total dose 2 gm/kg divided over 4 days. 2. Physical and occupational therapy and rehabilitation. 3. Vitamin B12 2000 mcg by mouth daily. 4 PSA is pending. The patient had prostate cancer in 2006 and had prostatectomy. He was found to have peripheral lung nodules during workup for primary source of his metastatic disease. He may have biopsy of lung nodule in future. He is being followed by hematology/oncology. 5. MRI cervical spine to rule out any cervical cord lesions although he does not have any upper motor neuron signs. 6. Check acetylcholine receptor antibody, VGCC antibody, etc. His CSF showed elevated total protein with normal cells. This can be suggestive of GBS which would also explain his hyporeflexia throughout and weakness. 7. Followup with our office in 2-3 weeks after hospital discharge.
[2019-07-17 22:00] VITALS: BP 172/82
[2019-07-17] MEDS: diphenhydrAMINE 50 MG CAP PO PRN (22:14)
[2019-07-18] VITALS (13 sets, daily range): BP systolic 132–173; BP diastolic 65–95
[2019-07-18] MEDS: MORPHINE 2 MG/ML 1ML VIAL (J2270) IV PRN ×3 (00:08→07:17)
[2019-07-18] MEDS: ACETAMINOPHEN 650MG ER TAB (TYLENOL ARTHRITIS) PO SCH ×2 (05:18→17:07)
[2019-07-18 05:36] LABS: BLOOD UREA NITROGEN 13 MG/DL (7-18); CARBON DIOXIDE LEVEL 27 MEQ/L (21-32); CHLORIDE LEVEL 101 MEQ/L (98-107); CREATININE FOR GFR 0.81 MG/DL (0.70-1.30); GLOMERULAR FILTRATION RATE > 60.0 (>49); GLUCOSE, FASTING 82 MG/DL (70-100); MAGNESIUM LEVEL 2.2 MG/DL (1.8-2.4); POTASSIUM SERUM 4.1 MEQ/L (3.5-5.1); SODIUM LEVEL 137 MEQ/L (136-145)
[2019-07-18 08:06] LABS: PSA ULTRASENSITIVE <0.006 ng/mL (0.000-4.000)
[2019-07-18] MEDS: **NOTE PATIENT COMMENT** MISC XX SCH (09:00)
[2019-07-18] MEDS: VENLAFAXINE **XR** 75MG CAPSULE PO SCH (09:02)
[2019-07-18] MEDS: ASPIRIN 81 MG ENTERIC TAB PO SCH (09:02)
[2019-07-18] MEDS: THIAMINE 100 MG TAB PO SCH ×2 (09:02→20:10)
[2019-07-18] MEDS: FOLIC ACID 1 MG TAB PO SCH (09:02)
[2019-07-18] MEDS: MULTIVITAMINS/MINERALS THERAP 1 TAB PO SCH (09:03)
[2019-07-18] MEDS: CYANOCOBALAMIN 500 MCG TAB PO SCH (09:03)
[2019-07-18] MEDS: ENOXAPARIN 40 MG/0.4 ML SYRINGE (J1650) SC SCH (09:04)
[2019-07-18] MEDS: NICOTINE 14 MG/24 HR TRANSDERMAL TD SCH (09:04)
[2019-07-18] MEDS ORDERED: IMMUNE GLOBULIN IV SCH (11:30)
--- NOTE | 2019-07-18 12:07 | IPNPDOC ---
Text Note Date of Service The patient was seen on 07/18/19. NOTE Subjective: Continues to have profound weakness of his legs, he cannot elevate legs against gravity and he is unable to walk. Continues to have the double vision. Also patient developed decreased flexibility of his fingers of both hands. Also has increased weakness of both arms which was not present on the admission. Patient stated that he doesn't want biopsy of his lungs or spine until Saturday, he wants to see improvement in his weakness on current treatment, then proceed with biopsy Objective:VITAL SIGNS: Please see below. GENERAL APPEARANCE: Well-nourished, well-developed, not in apparent distress HEENT: Normocephalic, atraumatic. Mucous members moist and pink CARDIOVASCULAR: Regular rate and rhythm. No murmurs, rubs or gallops. Radial pulses are intact. There is no lower extremity edema LUNGS: . Diminished lung sounds bilaterally ABDOMEN: Bowel sounds are hypoactive. Abdomen is soft and nontender. MUSCULOSKELETAL: Patient cannot elevate his legs against gravity, there is decreased strength of the left arm 3 out of 5, right arm for about 5 NEUROLOGICAL: Patient has double vision on both eyes, no nystagmus, no peripheral vision limitations. Sensitivity of the legs preserved, no nuchal rigidity. Alert, oriented, awake. Speech is not dysarthric Assessment and plan: Patient is 68 years old male with past history of hypertension, prostate cancer treated with prostatectomy in 2006 presented hospital with bilateral leg weakness and double vision. Imaging study showed multiple spinal bone metastasis and right lung nodules. Bilateral leg weakness/ arms weakness On 07/17/19 MRI of the spine did not show compression of the spinal cord Differential diagnosis includes paraneoplastic syndrome secondary to malignancy S Lamberta Eaton syndrome, myasthenia gravis, Gullian Peoples syndrome. I discussed findings with neurologist Dr. Ervin , he recommended IVIG infusion for possible Guillain-[place]gden syndrome. CSF showed elevated total protein with normal cells. This can be suggestive of GBS which would also explain his hyporeflexia throughout and weakness On physical exam 07/18/19 patient presented with increased weakness of both arms. No any difficulties in breathing Oncologist Dr. Roman follows pt Continue to monitor neuro check, pulmonary function Await ab to voltage gated calcium channel, acetylcholine receptor Ab vitamin B12 is 256 and TSH 4.01 await PSA Bone metastasis/Lung nodules MRI of the spine showed multiple metastasis on the thoracic and lumbar spine level Chest CAT scan showed right lung nodules Patient had a history of prostate cancer, his also active smoker. Unclear the primary source of cancer. We will proceed with biopsy. IR guided biopsy ordered Await CSF cytology Chronic HTN Continue cardioprotective medication Tobacco Abuse Plan: nicotine patch / smoking cessation education ETOH abuse CIWA VS,Fishbone, I+O VS, Fishbone, I+O Laboratory Tests 07/18/19 04:53 Vital Signs Date Time Temp Pulse Resp B/P (MAP) Pulse Ox O2 Delivery O2 Flow Rate FiO2 07/18/19 08:00 2.0 07/18/19 08:00 98.1 82 16 159/73 (101) 96 Nasal Cannula I&O- Last 24 Hours up to 6 AM 07/18/19 06:00 Intake Total 900 ml Output Total 1300 ml Balance -400 ml BARBARA HARPER DO Jul 18, 2019 12:07
[2019-07-18] MEDS ORDERED: IMMUNE GLOBULIN 10% 20GM 200ML 20 GM in IV 1 EA IV ONE ×4 (13:00)
[2019-07-18] MEDS ORDERED: BENAZEPRIL 20 MG TAB PO ONE (14:30)
[2019-07-18] MEDS: BENAZEPRIL 20 MG TAB PO SCH (20:10)
[2019-07-18] MEDS: diphenhydrAMINE 50 MG CAP PO PRN (20:10)
[2019-07-18] MEDS: LIDOCAINE 5% (LIDODERM) PATCH TD SCH (20:11)
[2019-07-18] MEDS: amLODIPine 10 MG TAB PO SCH (20:11)
[2019-07-19] VITALS (13 sets, daily range): BP systolic 147–167; BP diastolic 69–89
[2019-07-19] MEDS: MORPHINE 2 MG/ML 1ML VIAL (J2270) IV PRN ×2 (01:06→04:15)
[2019-07-19 05:05] LABS: HEMATOCRIT 38.4 % (42.0-52.0); HEMOGLOBIN 13.1 g/dl (13.5-17.5); MEAN CORPUSCULAR HEMOGLOBIN 32.9 pg (27.0-33.0); MEAN CORPUSCULAR HGB CONC 34.1 g/dl (32.0-36.5); MEAN CORPUSCULAR VOLUME 96.5 fl (80.0-96.0); PLATELET COUNT, AUTOMATED 222 10^3/uL (150-450); RED BLOOD COUNT 3.98 10^6/uL (4.30-6.10); WHITE BLOOD COUNT 5.4 10^3/uL (4.0-10.0)
[2019-07-19 05:24] LABS: BLOOD UREA NITROGEN 16 MG/DL (7-18); CALCIUM LEVEL 8.7 MG/DL (8.8-10.2); CARBON DIOXIDE LEVEL 28 MEQ/L (21-32); CHLORIDE LEVEL 101 MEQ/L (98-107); CREATININE FOR GFR 0.68 MG/DL (0.70-1.30); GLOMERULAR FILTRATION RATE > 60.0 (>49); GLUCOSE, FASTING 108 MG/DL (70-100); MAGNESIUM LEVEL 1.9 MG/DL (1.8-2.4); POTASSIUM SERUM 3.8 MEQ/L (3.5-5.1); SODIUM LEVEL 134 MEQ/L (136-145)
[2019-07-19] MEDS: ACETAMINOPHEN 650MG ER TAB (TYLENOL ARTHRITIS) PO SCH ×2 (06:07→17:13)
[2019-07-19] MEDS: **NOTE PATIENT COMMENT** MISC XX SCH (09:00)
[2019-07-19] MEDS ORDERED: CYANOCOBALAMIN 1,000 MCG/ML VIAL (J3420) IM SCH (09:00)
[2019-07-19] MEDS: NICOTINE 14 MG/24 HR TRANSDERMAL TD SCH (09:16)
[2019-07-19] MEDS: BENAZEPRIL 20 MG TAB PO SCH ×2 (09:16→21:00)
[2019-07-19] MEDS: VENLAFAXINE **XR** 75MG CAPSULE PO SCH (09:16)
[2019-07-19] MEDS: ASPIRIN 81 MG ENTERIC TAB PO SCH (09:16)
[2019-07-19] MEDS: MULTIVITAMINS/MINERALS THERAP 1 TAB PO SCH (09:17)
[2019-07-19] MEDS: FOLIC ACID 1 MG TAB PO SCH (09:17)
[2019-07-19] MEDS: ENOXAPARIN 40 MG/0.4 ML SYRINGE (J1650) SC SCH (09:17)
[2019-07-19] MEDS: THIAMINE 100 MG TAB PO SCH (09:17)
[2019-07-19] MEDS: CYANOCOBALAMIN 500 MCG TAB PO SCH (09:17)
[2019-07-19] MEDS ORDERED: IMMUNE GLOBULIN IV SCH (10:30)
--- NOTE | 2019-07-19 10:36 | IPNPDOC ---
Text Note Date of Service The patient was seen on 07/19/19. NOTE Subjective: No any acute events overnight. Continues to have profound weakness of his legs, he cannot elevate legs against gravity and he is unable to walk. Continues to have the double vision. Also patient developed decreased flexibility of his fingers of both hands, which is worsened today Continues to have weakness of both arms which was not present on the admission, patient can't abduct arms more than 90 Objective:VITAL SIGNS: Please see below. GENERAL APPEARANCE: Well-nourished, well-developed, not in apparent distress HEENT: Normocephalic, atraumatic. Mucous members moist and pink CARDIOVASCULAR: Regular rate and rhythm. No murmurs, rubs or gallops. Radial pu lses are intact. There is no lower extremity edema LUNGS: . Diminished lung sounds bilaterally ABDOMEN: Bowel sounds are hypoactive. Abdomen is soft and nontender. MUSCULOSKELETAL: Patient cannot elevate his legs against gravity, there is decreased strength of the left arm 3 out of 5, right arm for about 5 NEUROLOGICAL: Patient has double vision on both eyes, no nystagmus, no peripheral vision limitations. Sensitivity of the legs preserved, no nuchal rigidity. Alert, oriented, awake. Speech is not dysarthric Assessment and plan: Patient is 68 years old male with past history of hypertension, prostate cancer treated with prostatectomy in 2006 presented hospital with bilateral leg weakness and double vision. Imaging study showed multiple spinal bone metastasis and right lung nodules. Bilateral leg weakness/ arms weakness On 07/17/19 MRI of the spine did not show compression of the spinal cord Differential diagnosis includes paraneoplastic syndrome secondary to malignancy S Lamberta Eaton syndrome, myasthenia gravis or Gullian Peoples syndrome. I discussed findings with neurologist Dr. Ervin , he recommended IVIG infusion for possible Guillain-[place] syndrome. CSF showed elevated total protein with normal cells. This can be suggestive of GBS which would also explain his hyporeflexia throughout and weakness On physical exam 07/18/19 patient presented with increased weakness of both arms. No any difficulties in breathing so far Oncologist Dr. Roman follows pt Continue to monitor neuro check, pulmonary function Await ab to voltage gated calcium channel, acetylcholine receptor Ab vitamin B12 was 256, will check intrinsic factor I ordered intramuscular injection of B12 TSH 4.01 Bone metastasis/Lung nodules MRI of the spine showed multiple metastasis on the thoracic and lumbar spine level Chest CAT scan showed right lung nodules Patient had a history of prostate cancer, however PSA negative, his also active smoker. Unclear the primary source of cancer. We will proceed with biopsy. IR guided biopsy ordered Await CSF cytology Chronic HTN Continue cardioprotective medication Tobacco Abuse Plan: nicotine patch / smoking cessation education ETOH abuse CIWA hypertension I increased the dose of amlodipine to 10 mg The dose of benazepril to 20 mg twice a day and added metoprolol 25 mg twice a day Continue to monitor B12 deficiency Most likely secondary to alcoholism We'll check intrinsic factor to r/o pernicious anemia B12 IM VS,Fishbone, I+O VS, Fishbone, I+O Laboratory Tests 07/19/19 04:50 Vital Signs Date Time Temp Pulse Resp B/P (MAP) Pulse Ox O2 Delivery O2 Flow Rate FiO2 07/19/19 09:16 148/76 07/19/19 06:00 78 07/19/19 06:00 99.8 16 96 Nasal Cannula 2.0 I&O- Last 24 Hours up to 6 AM 07/19/19 06:00 Intake Total 1170 ml Output Total 1250 ml Balance -80 ml BARBARA HARPER DO Jul 19, 2019 10:36
[2019-07-19] MEDS: METOPROLOL TART 25 MG TABLET PO SCH ×2 (12:10→21:00)
[2019-07-19] MEDS: IMMUNE GLOBULIN 10% 20GM 200ML 40 GM in IV 1 EA IV SCH (12:15)
[2019-07-19] MEDS ORDERED: MIRALAX *UNIT DOSE* 17GM PACKET PO PRN (12:45)
[2019-07-19] MEDS: LIDOCAINE 5% (LIDODERM) PATCH TD SCH (20:59)
[2019-07-19] MEDS: ATORVASTATIN 10 MG TAB PO SCH (21:00)
[2019-07-19] MEDS: amLODIPine 10 MG TAB PO SCH (21:00)
[2019-07-20] VITALS (19 sets, daily range): BP systolic 139–181; BP diastolic 59–91; O2SAT 89–90
[2019-07-20] MEDS: MORPHINE 2 MG/ML 1ML VIAL (J2270) IV PRN ×2 (00:46→23:49)
[2019-07-20 05:14] LABS: BLOOD UREA NITROGEN 19 MG/DL (7-18); CARBON DIOXIDE LEVEL 28 MEQ/L (21-32); CHLORIDE LEVEL 101 MEQ/L (98-107); CREATININE FOR GFR 0.69 MG/DL (0.70-1.30); GLOMERULAR FILTRATION RATE > 60.0 (>49); GLUCOSE, FASTING 112 MG/DL (70-100); MAGNESIUM LEVEL 2.2 MG/DL (1.8-2.4); POTASSIUM SERUM 4.2 MEQ/L (3.5-5.1); SODIUM LEVEL 134 MEQ/L (136-145)
[2019-07-20] MEDS: ACETAMINOPHEN 650MG ER TAB (TYLENOL ARTHRITIS) PO SCH ×2 (05:39→17:23)
[2019-07-20] MEDS: **NOTE PATIENT COMMENT** MISC XX SCH (09:00)
[2019-07-20] MEDS: METOPROLOL TART 25 MG TABLET PO SCH ×2 (09:28→21:12)
[2019-07-20] MEDS: CYANOCOBALAMIN 500 MCG TAB PO SCH (09:28)
[2019-07-20] MEDS: ASPIRIN 81 MG ENTERIC TAB PO SCH (09:28)
[2019-07-20] MEDS: MULTIVITAMINS/MINERALS THERAP 1 TAB PO SCH (09:28)
[2019-07-20] MEDS: FOLIC ACID 1 MG TAB PO SCH (09:28)
[2019-07-20] MEDS: BENAZEPRIL 20 MG TAB PO SCH ×2 (09:29→21:12)
[2019-07-20] MEDS: NICOTINE 14 MG/24 HR TRANSDERMAL TD SCH (09:29)
[2019-07-20] MEDS: VENLAFAXINE **XR** 75MG CAPSULE PO SCH (09:29)
[2019-07-20] MEDS ORDERED: LIDOCAINE 1% MDV 20ML VIAL As Ordered ONE (10:12)
[2019-07-20] MEDS: ENOXAPARIN 40 MG/0.4 ML SYRINGE (J1650) SC SCH (12:10)
--- NOTE | 2019-07-20 12:11 | REP ---
AP chest x-ray: Single sitting AP view. History: Status post right lung biopsy. Comparison chest x-ray May 18, 2016. Findings: There is no visible pneumothorax. No hydrothorax is seen. Ill-defined somewhat nodular opacity is seen at the right base laterally. Impression: No complication is identified. Electronically Signed by Maurisio Curran MD 07/20/2019 12:03 P
--- NOTE | 2019-07-20 12:40 | IPNPDOC ---
Date Seen The patient was seen on 07/20/19. 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 Imaging shows multiple lung nodules with multiple metastatic bone lesions. PSA has been negative, patient has strong history of smoking. Patient reports improvement in strength of his arms over the past couple of days, no changes to his lower extremity at this time. He also reports double vision, slurred speech, denies any issues with breathing. Patient is scheduled for IR lung biopsy later today. Patient denies any shortness of breath, chest pain, nausea, vomiting, abdominal pain or diarrhea. 10 point review of system is negative except for above PHYSICAL EXAMINATION: VITAL SIGNS: Please see below. GENERAL: No distress HEENT: Normocephalic, atraumatic, moist mucous membranes NECK: Supple CARDIOVASCULAR EXAMINATION: S1, S2, no murmurs RESPIRATORY EXAMINATION: Clear to auscultation, no wheezing ABDOMINAL EXAMINATION: Soft, nontender, nondistended, positive bowel sounds EXTREMITIES: Unable to move lower extremities SKIN: No rash NEUROLOGICAL EXAMINATION: Alert and oriented 3, bilateral upper extremities 4 out of 5, bilateral lower extremities 0 out of 5, no sensory deficits PSYCHIATRIC EXAMINATION: Calm and cooperative LABORATORY DATA, IMAGING STUDIES, MICROBIOLOGY: Please see below. 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 PROBLEMS: 1. 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 Patient is scheduled for CT-guided IR lung biopsy later today. Neurology evaluation appreciated 2. Hypertension:. Home meds with hold parameters. BP consistently elevated, we'll add hydralazine to his regimen. 3. Hypothyroidism: Continue levothyroxine DVT prophylaxis: Lovenox. GI prophylaxis: Not needed VS, I&O, 24H, Fishbone Vital Signs/I&O Vital Signs Date Time Temp Pulse Resp B/P (MAP) Pulse Ox O2 Delivery O2 Flow Rate FiO2 07/20/19 12:06 98.6 62 20 171/82 (111) 92 Room Air 07/20/19 11:47 2 I&O- Last 24 Hours up to 6 AM 07/20/19 06:00 Intake Total 1150 ml Output Total 1200 ml Balance -50 ml Laboratory Data 24H LABS Laboratory Tests 2 07/19/19 17:37: Urine Color YELLOW, Urine Appearance HAZY, Urine pH 6.0, Urine Specific [place] 1.021, Urine Protein NEGATIVE, Urine Glucose (UA) NEGATIVE, Urine Ketones 1+H, Urine Blood NEGATIVE, Urine Nitrite NEGATIVE, Urine Bilirubin NEGATIVE, Urine Urobilinogen 0.2, Urine Leukocyte Esterase NEGATIVE, Urine WBC (Auto) 1, Urine RBC (Auto) 2, Urine Hyaline Casts (Auto) 0, Urine Bacteria (Auto) NEGATIVE, Urine Squamous Epithelial Cells 0, Urine Amorphous Sediment SMALLH, Urine Mucus (Auto) SMALL, Urine Sperm (Auto) 07/20/19 04:38: Anion Gap 5L, Glomerular Filtration Rate > 60.0, Calcium Level 9.0, Magnesium Level 2.2 CBC/BMP Laboratory Tests 07/20/19 04:38 Microbiology Microbiology 07/16/19 Gram Stain - Final, Complete 07/16/19 CSF Culture - Final, Complete MARIBEL PIERCE MD Jul 20, 2019 12:40
[2019-07-20] MEDS: **hydrALAZINE HCL** 25 MG TAB PO SCH ×2 (14:02→22:41)
[2019-07-20] MEDS: IMMUNE GLOBULIN 10% 20GM 200ML 40 GM in IV 1 EA IV SCH (14:04)
--- NOTE | 2019-07-20 14:10 | REP ---
Single view chest: 07/20/2019. Indication: Status post lung biopsy. Comparison: Earlier today. Findings: There is no pneumothorax. The right lung opacity corresponding to the biopsied mass is stable. There is no significant pleural effusion or pneumo/hemothorax. Chronic rib deformities on the right are redemonstrated. Cardiac silhouette is not enlarged. Impression: Expected post procedural findings. No pneumothorax. Electronically Signed by Adrian Bolanos DO 07/20/2019 02:00 P
--- NOTE | 2019-07-20 17:24 | REP ---
CT-GUIDED LEFT UPPER LOBE LUNG BIOPSY The procedure was performed under the direct supervision of Dr. Curran. The patient has a history of multiple right lung nodule seen on a previous CT scan dated 07/17/2019. The risks and benefits of the procedure were explained to the patient and informed consent was obtained. A lesion in the right lung along the fissure was localized using CT guidance. The skin was prepped and draped in a sterile fashion. 1% lidocaine was used as a local anesthetic. Using CT guidance a 19/20 gauge coaxial needle biopsy system was inserted and advanced into the nodule. Four core biopsy samples were obtained and sent to lab. The patient did develop a very small right pneumothorax. This was not seen on either postbiopsy follow-up chest x-ray. The patient tolerated the procedure well and there were no immediate complications. After the appropriate amount of monitored convalescence the patient was discharged from the department. Electronically Signed by NIMA Lockhart 07/20/2019 05:11 P Electronically Signed by Maurisio Curran MD 07/20/2019 05:15 P
[2019-07-20] MEDS: LIDOCAINE 5% (LIDODERM) PATCH TD SCH (21:00)
[2019-07-20] MEDS: ATORVASTATIN 10 MG TAB PO SCH (21:12)
[2019-07-20] MEDS: amLODIPine 10 MG TAB PO SCH (21:13)
[2019-07-21] VITALS (14 sets, daily range): BP systolic 153–184; BP diastolic 73–108; O2SAT 90–94
[2019-07-21] MEDS: MORPHINE 2 MG/ML 1ML VIAL (J2270) IV PRN ×4 (01:49→20:10)
[2019-07-21] MEDS: ACETAMINOPHEN 650MG ER TAB (TYLENOL ARTHRITIS) PO SCH ×2 (05:14→17:17)
[2019-07-21] MEDS: **hydrALAZINE HCL** 25 MG TAB PO SCH ×3 (05:15→22:36)
[2019-07-21] MEDS: NICOTINE 14 MG/24 HR TRANSDERMAL TD SCH (08:58)
[2019-07-21] MEDS: CYANOCOBALAMIN 500 MCG TAB PO SCH (08:59)
[2019-07-21] MEDS: METOPROLOL TART 25 MG TABLET PO SCH ×2 (08:59→20:05)
[2019-07-21] MEDS: FOLIC ACID 1 MG TAB PO SCH (08:59)
[2019-07-21] MEDS: MULTIVITAMINS/MINERALS THERAP 1 TAB PO SCH (08:59)
[2019-07-21] MEDS: ASPIRIN 81 MG ENTERIC TAB PO SCH (09:00)
[2019-07-21] MEDS: ENOXAPARIN 40 MG/0.4 ML SYRINGE (J1650) SC SCH (09:00)
[2019-07-21] MEDS: BENAZEPRIL 20 MG TAB PO SCH ×2 (09:00→20:04)
[2019-07-21] MEDS: VENLAFAXINE **XR** 75MG CAPSULE PO SCH (09:00)
[2019-07-21] MEDS: **NOTE PATIENT COMMENT** MISC XX SCH (09:15)
[2019-07-21 10:36] LABS: BLOOD UREA NITROGEN 27 MG/DL (7-18); CALCIUM LEVEL 9.3 MG/DL (8.8-10.2); CARBON DIOXIDE LEVEL 28 MEQ/L (21-32); CHLORIDE LEVEL 100 MEQ/L (98-107); CREATININE FOR GFR 0.68 MG/DL (0.70-1.30); GLOMERULAR FILTRATION RATE > 60.0 (>49); GLUCOSE, FASTING 105 MG/DL (70-100); MAGNESIUM LEVEL 2.3 MG/DL (1.8-2.4); PHOSPHORUS LEVEL 3.7 MG/DL (2.5-4.9); POTASSIUM SERUM 3.9 MEQ/L (3.5-5.1); SODIUM LEVEL 134 MEQ/L (136-145)
[2019-07-21] MEDS ORDERED: PROHANCE 279.3MG/ML 15ML VIAL (A9576) As Ordered ONE (12:30)
--- NOTE | 2019-07-21 13:28 | REP ---
MRI cervical spine: 07/21/2019. Indication: Quadriplegia. Comparison: None. Technique: Multiplanar short and long TR sequences of the cervical spine were obtained including IV Gadolinium images. 15 ml IV ProHance were administered. Findings: Diffusely heterogeneous marrow signal is present most pronounced within C6 with corresponding heterogeneous pathologic gadolinium enhancement. No pathologic compression fracture is present. There are no areas of severe spinal canal narrowing/compression of the cord. No abnormal cord signal or pathologic cord gadolinium enhancement are detected. Multilevel spondylosis is present most pronounced at C3/C4 and C4/C5 with mild spinal canal narrowing. There is minimal retrolisthesis of C4 on C5 as well as minimal anterolisthesis of C7 on T1. 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 Electronically Signed by Adrian Bolanos DO 07/21/2019 01:19 P
--- NOTE | 2019-07-21 14:14 | IPNPDOC ---
Date Seen The patient was seen on 07/21/19. 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 Imaging shows multiple lung nodules with multiple metastatic bone lesions. PSA has been negative, patient has strong history of smoking. Patient reports improvement in strength of his arms over the past couple of days, no changes to his lower extremity at this time. He also reports double vision, slurred speech, denies any issues with breathing. Patient is scheduled for IR lung biopsy later today. Patient denies any shortness of breath, chest pain, nausea, vomiting, abdominal pain or diarrhea. 07/21/2019 Patient comfortable, without any new complaints, continues to have weakness, working with physical therapy. 10 point review of system is negative except for above PHYSICAL EXAMINATION: VITAL SIGNS: Please see below. GENERAL: No distress HEENT: Normocephalic, atraumatic, moist mucous membranes NECK: Supple CARDIOVASCULAR EXAMINATION: S1, S2, no murmurs RESPIRATORY EXAMINATION: Clear to auscultation, no wheezing ABDOMINAL EXAMINATION: Soft, nontender, nondistended, positive bowel sounds EXTREMITIES: Unable to move lower extremities SKIN: No rash NEUROLOGICAL EXAMINATION: Alert and oriented 3, bilateral upper extremities 4 out of 5, bilateral lower extremities 0 out of 5, no sensory deficits PSYCHIATRIC EXAMINATION: Calm and cooperative LABORATORY DATA, IMAGING STUDIES, MICROBIOLOGY: Please see below. 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 PROBLEMS: 1. Progressive weakness: Involving bilateral lower and upper extremities, no sensory deficits, possibly paraneoplastic syndrome, LP with elevated protein, imaging with multiple pulmonary and bone lesions, status post IVIG infusions. Patient underwent CT-guided lung biopsy, preliminary path suggestive of non- small cell lung cancer, favoring adenocarcinoma (Lung primary). There is no oncology service available for inpatient consuls today, will attempt tomorrow. Neurology evaluation appreciated 2. Hypertension: Continue hydralazine in addition to home meds. 3. Hypothyroidism: Continue levothyroxine DVT prophylaxis: Lovenox. GI prophylaxis: Not needed VS, I&O, 24H, Fishbone Vital Signs/I&O Vital Signs Date Time Temp Pulse Resp B/P (MAP) Pulse Ox O2 Delivery O2 Flow Rate FiO2 07/21/19 14:00 67 170/89 07/21/19 13:36 18 Room Air 07/21/19 13:24 98.5 91 07/21/19 07:51 1.0 I&O- Last 24 Hours up to 6 AM 07/21/19 06:00 Intake Total 1060 ml Output Total 1075 ml Balance -15 ml Laboratory Data 24H LABS Laboratory Tests 2 07/21/19 09:42: Anion Gap 6L, Glomerular Filtration Rate > 60.0, Calcium Level 9.3, Phosphorus Level 3.7, Magnesium Level 2.3 CBC/BMP Laboratory Tests 07/21/19 09:42 Microbiology Microbiology 07/16/19 Gram Stain - Final, Complete 07/16/19 CSF Culture - Final, Complete MARIBEL PIERCE MD Jul 21, 2019 14:14
[2019-07-21] MEDS: amLODIPine 10 MG TAB PO SCH (20:05)
[2019-07-21] MEDS: ATORVASTATIN 10 MG TAB PO SCH (20:05)
[2019-07-21] MEDS: LIDOCAINE 5% (LIDODERM) PATCH TD SCH (20:06)
[2019-07-22] VITALS (23 sets, daily range): BP systolic 81–174; BP diastolic 53–109; O2SAT 97
[2019-07-22] MEDS ORDERED: LORazepam 2 MG/ML VIAL (J2060) IV PRN ×2 (00:45→15:45)
--- NOTE | 2019-07-22 01:24 | REPVR ---
PROCEDURE INFORMATION: Exam: XR Chest, 1 View Exam date and time: 07/22/2019 12:58 AM Clinical history: 68 years old, male; Other: Inc o2; Additional info: Increased oxygen requirement TECHNIQUE: Imaging protocol: XR of the chest Views: 1 view. COMPARISON: CR Chest, 1 view 07/20/2019 1:36 PM FINDINGS: Lungs: There is decreased inflation of the lungs which is similar to the prior study. The lungs are unchanged.There are no interval infiltrates. Pleural space: Unremarkable. No pleural effusion. No pneumothorax. Heart/Mediastinum: The heart and mediastinum are unchanged. Bones/joints: Old right rib fractures are again noted. IMPRESSION: Essentially stable poor inspiratory chest since 07/20/2019. No acute interval process is identified. Electronically signed by: Adam Love On 07/22/2019 01:24:27 AM
[2019-07-22 05:13] LABS: HEMOGLOBIN 14.9 g/dl (13.5-17.5); MEAN CORPUSCULAR HEMOGLOBIN 32.4 pg (27.0-33.0); MEAN CORPUSCULAR HGB CONC 33.1 g/dl (32.0-36.5); MEAN CORPUSCULAR VOLUME 97.8 fl (80.0-96.0); PLATELET COUNT, AUTOMATED 264 10^3/uL (150-450); WHITE BLOOD COUNT 8.4 10^3/uL (4.0-10.0)
[2019-07-22 05:41] LABS: BLOOD UREA NITROGEN 27 MG/DL (7-18); CALCIUM LEVEL 9.2 MG/DL (8.8-10.2); CARBON DIOXIDE LEVEL 29 MEQ/L (21-32); CHLORIDE LEVEL 104 MEQ/L (98-107); CREATININE FOR GFR 0.67 MG/DL (0.70-1.30); GLOMERULAR FILTRATION RATE > 60.0 (>49); GLUCOSE, FASTING 108 MG/DL (70-100); POTASSIUM SERUM 3.8 MEQ/L (3.5-5.1); SODIUM LEVEL 137 MEQ/L (136-145)
[2019-07-22] MEDS: ACETAMINOPHEN 650MG ER TAB (TYLENOL ARTHRITIS) PO SCH ×2 (06:45→06:46)
[2019-07-22] MEDS: **hydrALAZINE HCL** 25 MG TAB PO SCH (06:46)
[2019-07-22 08:00] LABS: ABG BASE EXCESS 3.6 (-2.0-2.0); ABG HCO3 28.4 MEQ/L (22.0-26.0); ABG O2 SATURATION 93.6 % (95.0-99.0); ABG PARTIAL PRESSURE CO2 43.6 mmHg (35.0-45.0); ABG PARTIAL PRESSURE O2 69.3 mmHg (75.0-100.0); ABG STANDARD HCO3 27.5 MEQ/L (22.0-26.0); ABG TOTAL CO2 29.8 MEQ/L (23.0-31.0); ABG pH (ARTERIAL) 7.432 UNITS (7.350-7.450)
[2019-07-22] MEDS ORDERED: PROPOFOL 1,000 MG/100 ML VIAL As Ordered ONE (08:09)
[2019-07-22] MEDS ORDERED: SUCCINYLCHOLINE INJ 200 MG/10 ML VIAL (J0330) As Ordered ONE (08:14)
[2019-07-22] MEDS: PROPOFOL 1,000 MG in IV 1 EA IV SCH ×3 (08:30→18:37)
[2019-07-22] MEDS ORDERED: SUCCINYLCHOLINE INJ 200 MG/10 ML VIAL (J0330) IV STA (08:50)
--- NOTE | 2019-07-22 08:50 | REP ---
Portable supine chest x-ray: Single view. 08:27 a.m. film. History: Status post intubation. Comparison study: 12:50 a.m. on this same date. Findings: Endotracheal tube is seen in good position at the level of proximal clavicles. NG tube enters the gastric fundus. Monitoring electrodes are noted. The left lung remains clear. There is new plate-like atelectasis in the right base. There are old healed rib fractures on the right. Impression: Endotracheal tube in good position. Plate-like atelectasis right base. Electronically Signed by Maurisio Curran MD 07/22/2019 08:42 A
[2019-07-22] MEDS: VENLAFAXINE **XR** 75MG CAPSULE PO SCH (09:00)
[2019-07-22] MEDS ORDERED: PROPOFOL 200 MG/20 ML VIAL IV ONE (09:00)
[2019-07-22] MEDS: ASPIRIN 81 MG ENTERIC TAB PO SCH (09:00)
--- NOTE | 2019-07-22 09:53 | REP ---
CT brain: 07/22/2019. Indication: Mental status change. Stroke. Comparison: MRI dated 07/16/2019. Technique: Unenhanced axial CT images of the brain were obtained from skull base to vertex. Findings: There is no acute intracranial hemorrhage, acute cortical infarction, mass effect or hydrocephalous. Chronic left cerebellar infarction is present. There are patchy areas of hypoattenuation throughout the cerebral hemisphere white matter most consistent with chronic small vessel disease. Impression: No acute intracranial process. Electronically Signed by Adrian Bolanos DO 07/22/2019 09:43 A
[2019-07-22] MEDS ORDERED: MORPHINE 2 MG/ML 1ML VIAL (J2270) As Ordered ONE (10:57)
[2019-07-22 10:58] LABS: ABG BASE EXCESS 5.4 (-2.0-2.0); ABG HCO3 29.1 MEQ/L (22.0-26.0); ABG O2 SATURATION 95.1 % (95.0-99.0); ABG PARTIAL PRESSURE CO2 39.2 mmHg (35.0-45.0); ABG PARTIAL PRESSURE O2 79.7 mmHg (75.0-100.0); ABG STANDARD HCO3 29.3 MEQ/L (22.0-26.0); ABG TOTAL CO2 30.3 MEQ/L (23.0-31.0); ABG pH (ARTERIAL) 7.488 UNITS (7.350-7.450)
[2019-07-22] MEDS ORDERED: MORPHINE 2 MG/ML 1ML VIAL (J2270) IV ONE (11:00)
[2019-07-22] MEDS: CYANOCOBALAMIN 500 MCG TAB PO SCH (11:07)
[2019-07-22] MEDS: MULTIVITAMINS/MINERALS THERAP 1 TAB PO SCH (11:07)
[2019-07-22] MEDS: FOLIC ACID 1 MG TAB PO SCH (11:07)
[2019-07-22] MEDS: METOPROLOL TART 25 MG TABLET PO SCH (11:09)
[2019-07-22] MEDS: ENOXAPARIN 40 MG/0.4 ML SYRINGE (J1650) SC SCH (11:11)
[2019-07-22] MEDS: NICOTINE 14 MG/24 HR TRANSDERMAL TD SCH (11:13)
[2019-07-22] MEDS: BENAZEPRIL 20 MG TAB PO SCH (11:15)
[2019-07-22] MEDS: **NOTE PATIENT COMMENT** MISC XX SCH (11:31)
--- NOTE | 2019-07-22 12:19 | CCN ---
DATE: 07/22/2019 I was emergently called to Mr. Rosales's bedside. His admission had been for progressive weakness and was diagnosed with Guillain-Rogers. He also had been found to have a metastatic adenocarcinoma. Because of his diagnosis it was felt that he needed to be intubated. I was present during the intubation. After discussion with Dr. Victor, he wanted to stay on as attending and we are going to co-manage intensive care issues. His ventilator was set up PRVC, tidal volume of 450 (6 mL/kg for predicted body weight), rate of 14 and PEEP of 5. His chest x-ray showed adequate position of the endotracheal tube. It has been advanced 1 cm since that x-ray. Chest CT scan did not show any acute pathology. His arterial blood gas on the above settings was 7.49/39/80 with a measured saturation of 95% and a base excess of 5.4. He was overbreathing the vent at a rate of 17-18. Neurology had been contacted and recommended plasmapheresis. Arrangements are being made for him to be transferred to [facility]. If this transfer does not occur, we will convert this to a complete consultation. DIAGNOSIS: Intubation mechanical ventilation secondary to decreased mental status. Critical care time 20 minutes not including procedure time.
--- NOTE | 2019-07-22 13:00 | IPNPDOC ---
Date Seen The patient was seen on 07/22/19. Progress Note Medical Oncology I spoke with the patient's at the bedside in ICU The patient is now intubated due to ascending paralysis in the face of stage IV lung cancer The discussion regarding the treatment of the Guillan Keller was reviewed as well as in the absence of caner, the long rehabilitation associated with the disease / The life expectancy of the patient with stage IV lung cancer was also discussed . The patent's will discuss the transfer to [facility] with her daughters who are local . The patient has a poor prognosis form the lung cancer itself and is grave with the guillan barre associated with it .End of life care was approached as well as a possibilty in his care Thank you Pascale Heredia VS, I&O, 24H, Amy Vital Signs/I&O Vital Signs Date Time Temp Pulse Resp B/P (MAP) Pulse Ox O2 Delivery O2 Flow Rate FiO2 07/22/19 11:30 85 110/61 (77) 97 Ventilator 35 07/22/19 11:08 19 35.0 07/22/19 07:38 97.5 I&O- Last 24 Hours up to 6 AM 07/22/19 05:59 Intake Total 780 ml Output Total 1100 ml Balance -320 ml Laboratory Data 24H LABS Laboratory Tests 2 07/22/19 04:58: Nucleated Red Blood Cells % (auto) 0.0, Anion Gap 4L, Glomerular Filtration Rate > 60.0, Calcium Level 9.2, Magnesium Level 2.0 07/22/19 07:43: Blood Gas Bicarbonate Standard 27.5H, Arterial Blood pH 7.432, Arterial Blood Partial Pressure CO2 43.6, Arterial Blood Partial Pressure O2 69.3L, Arterial Blood Total CO2 29.8, Arterial Blood HCO3 28.4H, Arterial Blood Base Excess 3.6H, Arterial Blood Oxygen Saturation 93.6L 07/22/19 10:42: Blood Gas Bicarbonate Standard 29.3H, Arterial Blood pH 7.488H, Arterial Blood Partial Pressure CO2 39.2, Arterial Blood Partial Pressure O2 79.7, Arterial Blood Total CO2 30.3, Arterial Blood HCO3 29.1H, Arterial Blood Base Excess 5.4H, Arterial Blood Oxygen Saturation 95.1 07/22/19 12:14: Bedside Glucose (Misc Panel) 132H CBC/BMP Laboratory Tests 07/22/19 04:58 Microbiology Microbiology 07/16/19 Gram Stain - Final, Complete 07/16/19 CSF Culture - Final, Complete Pascale Roman MD Jul 22, 2019 13:00
[2019-07-22] MEDS ORDERED: MORPHINE 2 MG/ML 1ML VIAL (J2270) IV PRN (14:15)
--- NOTE | 2019-07-22 18:11 | DS.PDOC ---
Discharge Summary General Date of Admission Jul 16, 2019 at 22:08 Date of Discharge 07/22/2019 Attending Physician: MARIBEL PIERCE MD Discharge Summary PROCEDURES PERFORMED DURING STAY: Endotracheal intubation, IVIG. ADMITTING DIAGNOSES: 1. Progressive weakness. DISCHARGE DIAGNOSES: 1. Paraneoplastic Guillain-Peoples syndrome. COMPLICATIONS/CHIEF COMPLAINT: Lower Extremity Weakness. HISTORY OF PRESENT ILLNESS: 68-year-old male with past medical history of hypertension, hyperlipidemia, prostate cancer status post prostatectomy, was admitted for progressive weakness. Weakness started in bilateral lower extremities, breast proximally, soon involved bilateral upper extremities and even his eyes/speech ability. Patient was diagnosed with presumptive Guillain- Peoples syndrome, on imaging found to have multiple lung and bone lesions, underwent CT-guided lung biopsy which showed primary adenocarcinoma of the lung. 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 Patient was doing reasonably well up until last night when he started to progressively get weaker, to the point of unresponsiveness. When I evaluated the patient the morning. He was not able to move any of his extremities, not able to open his eyes or respond to vocal or tactile stimuli, patient was completely flaccid despite noxious stimuli. There was concern for patient's inability to maintain his airway, given progressive weakness, he was emergently intubated and placed on mechanical ventilation. Patient underwent repeat CT scan of the head after being intubated, no acute pathology was noted to justify change in patient's acute symptoms. Case was discussed with neurologist, who recommended possible benefit from plasmapheresis. Case was also discussed with oncologist who agrees that patient possibly has paraneoplastic Guillain-Peoples syndrome. [facility] was contacted regarding a possible transfer, case was discussed with catering manager (Dr. Noriega), who agreed to accept the patient. I was notified that there is a bed available currently for the patient, arrangements were made to have the patient transferred by air transport. Patient is currently hemodynamically stable for discharge and transferred to [facility]. Patient will remain on propofol drip with when necessary Ativan for sedation. HOSPITAL COURSE: As above. DISCHARGE MEDICATIONS: Please see below. ALLERGIES: Please see below. PHYSICAL EXAMINATION: VITAL SIGNS: Please see below. GENERAL: No distress HEENT: Pupils unequal, not reacting to light, size [address] NECK: Supple CARDIOVASCULAR EXAMINATION: S1, S2, no murmurs RESPIRATORY EXAMINATION: Clear to auscultation, no wheezing ABDOMINAL EXAMINATION: Soft, nontender, nondistended, positive bowel sounds EXTREMITIES: Moving upper extremities SKIN: No rash NEUROLOGICAL EXAMINATION: Able to follow simple commands PSYCHIATRIC EXAMINATION: Sedated LABORATORY DATA: Please see below. PROGNOSIS: Poor ACTIVITY: As tolerated. DIET: Tube feeding DISCHARGE PLAN: Patient will be transferred to the Medical Center for further care DISPOSITION: [facility]. DISCHARGE INSTRUCTIONS: 1. As above. DISCHARGE CONDITION: Stable. TIME SPENT ON DISCHARGE: Greater than 75 minutes. Vital Signs/I&Os Vital Signs Date Time Temp Pulse Resp B/P (MAP) Pulse Ox O2 Delivery O2 Flow Rate FiO2 07/22/19 16:37 97 Ventilator 30 07/22/19 16:26 20 07/22/19 16:00 97.6 77 115/70 (85) 07/22/19 11:08 35.0 I&O- Last 24 Hours up to 6 AM 07/22/19 06:00 Intake Total 720 ml Output Total 675 ml Balance 45 ml Laboratory Data Labs 24H Laboratory Tests 2 07/22/19 04:58: Nucleated Red Blood Cells % (auto) 0.0, Anion Gap 4L, Glomerular Filtration Rate > 60.0, Calcium Level 9.2, Magnesium Level 2.0 07/22/19 07:43: Blood Gas Bicarbonate Standard 27.5H, Arterial Blood pH 7.432, Arterial Blood Partial Pressure CO2 43.6, Arterial Blood Partial Pressure O2 69.3L, Arterial Blood Total CO2 29.8, Arterial Blood HCO3 28.4H, Arterial Blood Base Excess 3.6H, Arterial Blood Oxygen Saturation 93.6L 07/22/19 10:42: Blood Gas Bicarbonate Standard 29.3H, Arterial Blood pH 7.488H, Arterial Blood Partial Pressure CO2 39.2, Arterial Blood Partial Pressure O2 79.7, Arterial Blood Total CO2 30.3, Arterial Blood HCO3 29.1H, Arterial Blood Base Excess 5.4H, Arterial Blood Oxygen Saturation 95.1 07/22/19 12:14: Bedside Glucose (Misc Panel) 132H CBC/BMP Laboratory Tests 07/22/19 04:58 FSBS Laboratory Tests Test 07/22/19 12:14 Range/Units Bedside Glucose (Misc Panel) 132 80-115 MG/DL Microbiology Microbiology 07/16/19 Gram Stain - Final, Complete 07/16/19 CSF Culture - Final, Complete Discharge Medications Scheduled Amlodipine/Benazepril (Lotrel 5-20 mg Capsule) 1 Each Capsule, 1 CAP PO QHS, (Reported) Aspirin (Aspirin EC) 81 Mg Tablet.dr, 81 MG PO DAILY, (Reported) Atorvastatin Calcium (Atorvastatin Calcium) 10 Mg Tab, 10 MG PO QHS, (Reported) Venlafaxine HCl (Effexor Xr) 150 Mg Cap.er.24h, 150 MG PO DAILY, (Reported) Scheduled PRN Calcium Carbonate (Tums) 500 Mg Chw, 1,000 MG PO Q4H PRN for HEARTBURN/INDIGESTION, (Reported) Loratadine (Loratadine) 10 Mg Tablet, 10 MG PO DAILY PRN for ALLERGY SYMPTOMS, (Reported) Oxymetazoline HCl (No Drip) 0.05% [place], 2 SPRAYS NA QHS PRN for NASAL CONGESTION, (Reported) Allergies Coded Allergies: No Known Allergies (Unverified , 07/16/19) MARIBEL PIERCE MD Jul 22, 2019 18:11
[2019-07-22] MEDS ORDERED: NS 1,000 ML IV SCH (18:15)
[2019-07-22] MEDS ORDERED: CHLORHEXIDINE GLUCONATE 0.12 % 15ML UDC (PERIDEX ORAL RINSE) MT SCH (21:00)
[2019-07-23] MEDS ORDERED: PANTOPRAZOLE 40MG INJ (PROTONIX) (C9113) IV SCH (09:00)
[2019-07-24 00:06] LABS: ACETYLCHOLINE RCPTOR BINDING A < 0.03 nmol/L (0.00-0.24); VGCC ANTIBODY Negative (Negative)
== END 2019-07-22 18:53 | disposition short-term general hospital (02) | DRG 95 ==
LOC: M ED 19:26 → M ED INP 22:08 → M MS5PR 23:40 → M ICU 07-17 20:05
PROVIDERS: ADMIT Internal Medicine; ATTEND Internal Medicine
PROC: 009U3ZX Drainage of Spinal Canal, Percutaneous Approach, Diagnostic (ICD-10-PCS; 2019-07-16)
PROC: 0B9K3ZX Drainage of Right Lung, Percutaneous Approach, Diagnostic (ICD-10-PCS; 2019-07-20)
PROC: 0BH17EZ Insertion of Endotracheal Airway into Trachea, Via Natural or Artificial Opening (ICD-10-PCS; principal; 2019-07-22)
PROC: 5A1935Z Respiratory Ventilation, Less than 24 Consecutive Hours (ICD-10-PCS; 2019-07-22)
DX: G61.0 Guillain-Barre syndrome (principal); F10.288 Alcohol dependence with other alcohol-induced disorder; G73.1 Lambert-Eaton syndrome in neoplastic disease; M84.58XA Pathological fracture in neoplastic disease, other specified site, initial encounter for fracture; C78.01 Secondary malignant neoplasm of right lung; C79.51 Secondary malignant neoplasm of bone; R53.1 Weakness; I10 Essential (primary) hypertension; E78.5 Hyperlipidemia, unspecified; Z85.46 Personal history of malignant neoplasm of prostate; Z96.642 Presence of left artificial hip joint; F17.200 Nicotine dependence, unspecified, uncomplicated; D75.89 Other specified diseases of blood and blood-forming organs; Z79.82 Long term (current) use of aspirin; Z79.899 Other long term (current) drug therapy; G70.00 Myasthenia gravis without (acute) exacerbation; H53.2 Diplopia; E53.8 Deficiency of other specified B group vitamins; E03.9 Hypothyroidism, unspecified

== ENCOUNTER 2019-07-31 09:41 | Inpatient (IN) | payer MEDICARE, OTHER ==
[~2019-07-31 09:41] MED LIST changes: +12 H0.05; +ASPI-161 PO; +LORA-622 PO; +LOTR52CA PO; +MUCINEX SINUS MAX
[2019-07-31 17:06] VITALS: BP 142/83
[2019-07-31] MEDS ORDERED: ALPRAZolam 0.5 MG TAB PO PRN (17:45)
--- NOTE | 2019-07-31 17:54 | HPEPDOC ---
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 Patient initially presented to [facility] on July 16 with progressive weakness starting in the legs moving up to his arms, patient diagnosed Guillain-Peoples syndrome, treated with IVIG, found to have lung and bone lesions, underwent lung biopsy which was positive for primary adenocarcinoma of the lung. Patient was likely to have paraneoplastic Guillain- Peoples syndrome from adenocarcinoma of the lung. Patient became completely flaccid, was emergently intubated to protect his airway and transferred to [facility] for further therapy including plasmapheresis. He received 5 sessions of plasmapheresis at [facility], evaluated by oncology, patient finally decided to not pursue any treatment options for the lung cancer as he continues to have near flaccid paralysis. MOLST form with DNR/DNI with comfort measures only signed at [facility] and patient is transferred back to [facility] with anticipation of hospice, this coming Saturday. Patient seen in his room, confused, thinks he is supposed to get physical therapy tonight, thinks she is going to get chemotherapy for his cancer. Family is not present at this time. Patient has no complains at this time PAST MEDICAL HISTORY: 1. 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 2. Hypertension. 3. , Hyperlipidemia. SOCIAL HISTORY: Heavy smoker. Drinks alcohol. Denies drug use FAMILY HISTORY: Noncontributory ALLERGIES: Please see below. HOME MEDICATIONS: Please see below. PHYSICAL EXAMINATION: VITAL SIGNS: Please see below. GENERAL: No distress HEENT: Normocephalic, atraumatic, moist mucous membranes, has NG tube in place NECK: Supple CARDIOVASCULAR EXAMINATION: S1, S2, no murmurs RESPIRATORY EXAMINATION: Clear to auscultation, no wheezing ABDOMINAL EXAMINATION: Soft, nontender, nondistended, positive bowel sounds EXTREMITIES: No edema SKIN: No rash NEUROLOGICAL EXAMINATION: Alert and oriented 3, unable to move lower extremities, minimal movement noted in toes, can lift left arm against gravity, can move right arm was significantly weaker than left PSYCHIATRIC EXAMINATION: Calm and cooperative LABORATORY DATA: See below. MICROBIOLOGY: Please see below. 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 PLAN: 1. 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 Continues to have severe weakness in all extremities, MOLST form with DNR/DNI and comfort measures only signed at [facility]. Morphine and Xanax as needed for pain/comfort No other treatments will be provided at this time other than for the purpose of making the patient comfortable. Vital Signs Vital Signs Date Time Temp Pulse Resp B/P (MAP) Pulse Ox O2 Delivery O2 Flow Rate FiO2 07/31/19 17:06 98.2 97 18 142/83 (102) 94 Nasal Cannula 5.0 Home Medications Scheduled Amlodipine/Benazepril (Lotrel 5-20 mg Capsule) 1 Each Capsule, 1 CAP PO QHS Aspirin (Aspirin EC) 81 Mg Tablet.dr, 81 MG PO DAILY Atorvastatin Calcium (Atorvastatin Calcium) 10 Mg Tab, 10 MG PO QHS Venlafaxine HCl (Effexor Xr) 150 Mg Cap.er.24h, 150 MG PO DAILY Scheduled PRN Calcium Carbonate (Tums) 500 Mg Chw, 1,000 MG PO Q4H PRN for HEARTBURN/IND IGESTION Loratadine (Loratadine) 10 Mg Tablet, 10 MG PO DAILY PRN for ALLERGY SYMPTOMS Oxymetazoline HCl (No Drip) 0.05% [place], 2 SPRAYS NA QHS PRN for NASAL CONGESTION Allergies Coded Allergies: No Known Allergies (Unverified , 07/16/19) A-FIB/CHADSVASC A-FIB History Current/History of A-Fib/PAF?: No MARIBEL PIERCE MD Jul 31, 2019 17:54
[2019-07-31] MEDS ORDERED: ATOR1TAB21 PO (18:57)
[2019-07-31] MEDS ORDERED: MECL-86 PO (18:57)
[2019-07-31] MEDS ORDERED: SILD100T PO (18:57)
[2019-08-01] MEDS: D5W/0.9% SODIUM CHLORIDE 1,000 ML IV SCH ×2 (09:05→21:56)
--- NOTE | 2019-08-01 11:57 | IPNPDOC ---
Date Seen The patient was seen on 08/01/19. Progress Note 08/01/2019 Had a long discussion with regarding goals of care, she wishes to keep the patient comfort measures only, her main concern is pain control along with pleasure feeds. Patient is awake but confused, thinks he is in [place], without any complaints at this time. As per 's requests gentle IV hydration was started, along with pleasure feeds with the understanding that patient may be aspirating part of the feeds, which the is okay with as long as the patient is comfortable and getting to enjoy his ice cream. Plan is for home hospice hospice on Saturday. VS, I&O, 24H, Fishbone Vital Signs/I&O Vital Signs Date Time Temp Pulse Resp B/P (MAP) Pulse Ox O2 Delivery O2 Flow Rate FiO2 07/31/19 23:03 5.0 07/31/19 17:06 98.2 97 18 142/83 (102) 94 Nasal Cannula I&O- Last 24 Hours up to 6 AM 08/01/19 06:00 Intake Total 100 ml Output Total 1050 ml Balance -950 ml MARIBEL PIERCE MD Aug 01, 2019 11:57
[2019-08-01] MEDS: MORPHINE 2 MG/ML 1ML VIAL (J2270) IV PRN (17:34)
[2019-08-02] MEDS: MORPHINE 2 MG/ML 1ML VIAL (J2270) IV PRN ×6 (01:32→16:10)
[2019-08-02] MEDS: D5W/0.9% SODIUM CHLORIDE 1,000 ML IV SCH (08:21)
[2019-08-02] MEDS ORDERED: MORPHINE 2 MG/ML 1ML VIAL (J2270) IV PRN (17:45)
--- NOTE | 2019-08-02 19:37 | DS.PDOC ---
Discharge Summary General Date of Admission Jul 31, 2019 at 17:04 Date of Discharge 08/02/2019 Attending Physician: MARIBEL PIERCE MD Discharge Summary PROCEDURES PERFORMED DURING STAY: None. ADMITTING DIAGNOSES: 1. Guillain-Peoples syndrome, lung cancer. DISCHARGE DIAGNOSES: 1. 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 COMPLICATIONS/CHIEF COMPLAINT: Paraneuplastic Guillain-[place] Syndrome. 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 Patient was expected to go home with home hospice on Saturday, remained comfort measures only, was treated with morphine. Patient was comfortable during her stay, notified by nurse that patient has , time of 1740. HOSPITAL COURSE: As above. DISPOSITION: . TIME SPENT ON DISCHARGE: Greater than 15 minutes. Vital Signs/I&Os Vital Signs Date Time Temp Pulse Resp B/P (MAP) Pulse Ox O2 Delivery O2 Flow Rate FiO2 08/02/19 09:00 6.0 08/02/19 02:57 28 Nasal Cannula 07/31/19 17:06 98.2 97 142/83 (102) 94 I&O- Last 24 Hours up to 6 AM 08/02/19 06:00 Intake Total 1680 ml Output Total 1395 ml Balance 285 ml Discharge Medications Scheduled Amlodipine/Benazepril (Lotrel 5-20 mg Capsule) 1 Each Capsule, 1 CAP PO QHS, (Reported) Aspirin (Aspirin EC) 81 Mg Tablet.dr, 81 MG PO DAILY, (Reported) Atorvastatin Calcium (Atorvastatin Calcium) 20 Mg Tablet, 20 MG PO QHS, (Reported) Scheduled PRN Calcium Carbonate (Tums) 500 Mg Chw, 1,000 MG PO Q4H PRN for HEARTBURN/INDIGESTION, (Reported) Loratadine (Loratadine) 10 Mg Tablet, 10 MG PO DAILY PRN for ALLERGY SYMPTOMS, (Reported) Meclizine HCl (Meclizine HCl) 25 Mg Tablet, 25 MG PO Q8H PRN for DIZZINESS, (Reported) Oxymetazoline HCl (No Drip) 0.05% [place], 2 SPRAYS NA QHS PRN for NASAL CONGESTION, (Reported) Sildenafil Citrate (Sildenafil Citrate) 100 Mg Tablet, 100 MG PO DAILY PRN for ERECTILE DYSFUNCTION, (Reported) Venlafaxine HCl (Effexor Xr) 150 Mg Cap.er.24h, 150 MG PO DAILY PRN for MOOD/ANXIETY, (Reported) PATIENT STATES HE TAKES NEEDED Allergies Coded Allergies: No Known Allergies (Unverified , 07/16/19) MARIBEL PIERCE MD Aug 02, 2019 19:37
== END 2019-08-02 17:40 | disposition expired | DRG 951 ==
LOC: M MSPAV 17:04
PROVIDERS: ADMIT Internal Medicine; ATTEND Internal Medicine
DX: Z51.5 Encounter for palliative care (principal); G93.41 Metabolic encephalopathy; G61.0 Guillain-Barre syndrome; C34.90 Malignant neoplasm of unspecified part of unspecified bronchus or lung; I10 Essential (primary) hypertension; E78.5 Hyperlipidemia, unspecified; Z66 Do not resuscitate; Z87.891 Personal history of nicotine dependence; Z79.82 Long term (current) use of aspirin; Z79.899 Other long term (current) drug therapy